=== PATIENT | female | born 1980 | race Caucasian/White ===

== ENCOUNTER 2017-01-29 20:02 | Emergency (ER) | payer BC, MEDICARE ==
[~2017-01-29] VITALS: Ht 162.6 cm; Wt 54.7 kg
[~2017-01-29 20:02] MED LIST: CIPR250T27 PO; ONDA4TAB10 PO
[2017-01-29] MEDS ORDERED: SODIUM CHLORIDE 0.9% 1,000 ML IV ONE (20:17)
[2017-01-29] MEDS ORDERED: SODIUM CHLORIDE 0.9% 1,000ML IVBOLUS ONE (20:30)
[2017-01-29] MEDS ORDERED: SODIUM CHLORIDE FLUSH 10ML SYR IVF ONE (20:30)
[2017-01-29] MEDS ORDERED: PROMETHAZINE 25 MG/ML, 1ML IM ONE (20:30)
[2017-01-29] MEDS ORDERED: ONDANSETRON 2MG/ML, 2ML IVPush ONE (22:00)
[2017-01-29] MEDS ORDERED: DIPHENHYDRAMINE 50 MG/ML, 1ML IVPush ONE (22:00)
[2017-01-29] MEDS ORDERED: KETOROLAC 30 MG/1 ML IVPush ONE (22:00)
[2017-01-29] MEDS ORDERED: DIPHENHYDRAMINE 50 MG/ML, 1ML ONE (22:21)
[2017-01-29] MEDS ORDERED: PROMETHAZINE 25 MG/ML, 1ML ONE (22:21)
[2017-01-29] MEDS ORDERED: KETOROLAC 30 MG/1 ML ONE (22:21)
[2017-01-29] MEDS ORDERED: ONDANSETRON 2MG/ML, 2ML ONE (22:21)
[2017-01-29 23:04] LABS: HEMOGLOBIN 11.1 g/dL (11.7-16.4)
[2017-01-29 23:21] LABS: ASPARTATE AMINO TRANSFERASE 11 U/L (15-37); BLOOD UREA NITROGEN 10 mg/dL (7-18); IS PT STATUS REG ER OR PRE ER? NO
[2017-01-30] MEDS ORDERED: HYDROmorphone 1 MG/ML, 1ML IV ONE
[2017-01-30] MEDS ORDERED: ONDANSETRON 2MG/ML, 2ML IVPush ONE
[2017-01-30] MEDS ORDERED: ONDANSETRON 2MG/ML, 2ML ONE (00:03)
[2017-01-30] MEDS ORDERED: HYDROmorphone 1 MG/ML, 1ML ONE (00:03)
[2017-01-30 00:10] VITALS: BP 125/85
== END 2017-01-29 21:23 ==
LOC: ED 21:17
DX: R07.89 Other chest pain (principal); G89.29 Other chronic pain; R11.2 Nausea with vomiting, unspecified; R10.84 Generalized abdominal pain; Z88.8 Allergy status to other drugs, medicaments and biological substances; Z90.89 Acquired absence of other organs; Z90.710 Acquired absence of both cervix and uterus; Z90.721 Acquired absence of ovaries, unilateral
CPT/HCPCS: 36415; 71010; 80053; 81003; 84484; 84703; 85025; 93005; 96361; 96372; 96374; 96375; 96376; 99285; J1200; J1885; J2405; J2550; J7030; J1170

== ENCOUNTER 2017-05-23 23:05 | Emergency (ER) | payer BC, MEDICARE ==
[~2017-05-23] VITALS: Ht 162.6 cm; Wt 51.4 kg
[2017-05-24] MEDS ORDERED: PROMETHAZINE 25 MG/ML, 1ML ONE (00:15)
[2017-05-24] MEDS ORDERED: KETAMINE 10 MG/ML, 20ML ONE (00:18)
[2017-05-24] MEDS ORDERED: PROMETHAZINE 25 MG/ML, 1ML IM ONE (00:30)
[2017-05-24] MEDS ORDERED: SODIUM CHLORIDE 0.9% 1,000ML IVBOLUS ONE (00:30)
[2017-05-24] MEDS ORDERED: KETAMINE 10 MG/ML, 20ML IV ONE (00:30)
[2017-05-24 00:37] LABS: ASPARTATE AMINO TRANSFERASE 15 U/L (15-37); BLOOD UREA NITROGEN 11 mg/dL (7-18)
[2017-05-24 01:44] VITALS: BP 121/87
== END 2017-05-24 02:05 | disposition home or self-care (01) ==
LOC: ED 05-24 02:03
DX: R11.2 Nausea with vomiting, unspecified (principal); R00.0 Tachycardia, unspecified; Z88.8 Allergy status to other drugs, medicaments and biological substances; Z90.710 Acquired absence of both cervix and uterus
CPT/HCPCS: 36415; 80053; 84439; 84443; 85025; 93005; 96372; 96374; 99285; J2550; J7030

== ENCOUNTER 2017-06-14 19:04 | Emergency (ER) | payer BC, MEDICARE ==
[~2017-06-14] VITALS: Ht 162.6 cm; Wt 55.7 kg
[2017-06-14] MEDS ORDERED: SODIUM CHLORIDE FLUSH 10ML SYR IVF ONE (19:30)
[2017-06-14] MEDS ORDERED: SODIUM CHLORIDE 0.9% 1,000ML IVBOLUS ONE ×2 (19:30→20:00)
[2017-06-14 19:57] LABS: BLOOD UREA NITROGEN 10 mg/dL (7-18)
[2017-06-14] MEDS ORDERED: LORazepam 2 MG/ML, 1ML IVPush ONE (20:00)
[2017-06-14 20:01] LABS: IS PT STATUS REG ER OR PRE ER? YES
[2017-06-14 20:03] LABS: PATH.CAST-FLAG NOT PRESENT; SPERM-FLAG NOT PRESENT; SRC-FLAG NOT PRESENT; XTAL-FLAG NOT PRESENT; YLC-FLAG NOT PRESENT
[2017-06-14] MEDS ORDERED: PROMETHAZINE 25 MG/ML, 1ML IM ONE (20:30)
[2017-06-14] MEDS ORDERED: MORPHINE SULFATE 4 MG/ML, 1ML ONE ×2 (20:34→21:15)
[2017-06-14] MEDS ORDERED: LORazepam 2 MG/ML, 1ML ONE (20:35)
[2017-06-14] MEDS: MORPHINE SULFATE 4 MG/ML, 1ML IVPush PRN ×2 (20:41→21:17)
[2017-06-14] MEDS ORDERED: POTASSIUM CHLORIDE 20 MEQ TAB.ER.PRT PO ONE (21:00)
[2017-06-14] MEDS ORDERED: OMNIPAQUE 350 MG/ML, 100ML BOTTLE ONE (21:00)
[2017-06-14] MEDS ORDERED: POTASSIUM CHLORIDE 20 MEQ TAB.ER.PRT ONE (21:15)
[2017-06-14] MEDS ORDERED: ONDA2VIA3 IV (21:44)
[2017-06-14] MEDS ORDERED: LORA2TAB99 PO (21:44)
[2017-06-14] MEDS ORDERED: DIPH12.532 IV (21:44)
[2017-06-14] MEDS ORDERED: ALPR2TAB2 PO (21:44)
[2017-06-14] MEDS ORDERED: ESTR2TAB PO (21:44)
[2017-06-14 21:45] VITALS: BP 116/81
== END 2017-06-14 22:26 | disposition home or self-care (01) ==
LOC: ED 21:55
DX: R07.2 Precordial pain (principal); R00.0 Tachycardia, unspecified; E87.6 Hypokalemia; Z88.8 Allergy status to other drugs, medicaments and biological substances
CPT/HCPCS: 36415; 71010; 71275; 80048; 80162; 81001; 82040; 83735; 83880; 84436; 84443; 84484; 84703; 85025; 85379; 87086; 93005; 96361; 96374; 96375; 96376; 99285; J2060; J7030; Q9967

== ENCOUNTER 2017-08-07 18:06 | Inpatient (IN) | payer BC, MEDICARE ==
[~2017-08-07] VITALS: Ht 162.6 cm; Wt 58.6 kg
[~2017-08-07 18:06] MED LIST changes: +ALPR2TAB2 PO; +DIPH12.532 IV; +ESTR2TAB PO; +LORA2TAB99 PO; +ONDA2VIA3 IV
[2017-08-07] MEDS ORDERED: SODIUM CHLORIDE 0.9% 1,000ML IVBOLUS ONE (18:30)
[2017-08-07] MEDS ORDERED: FAMOTIDINE 20 MG/2 ML IVP ONE (18:30)
[2017-08-07] MEDS ORDERED: ONDANSETRON 2MG/ML, 2ML IVPush ONE ×2 (18:30→19:00)
[2017-08-07 18:48] LABS: HEMATOCRIT 37.3 % (34.6-47.8); HEMOGLOBIN 12.6 g/dL (11.7-16.4); WHITE BLOOD COUNT 4.6 x10^3/uL (3.4-10)
[2017-08-07] MEDS ORDERED: FAMOTIDINE 20 MG/2 ML ONE (18:56)
[2017-08-07] MEDS ORDERED: MORPHINE SULFATE 4 MG/ML, 1ML ONE ×2 (18:56→23:02)
[2017-08-07 19:00] LABS: ASPARTATE AMINO TRANSFERASE 16 U/L (15-37); BLOOD UREA NITROGEN 7 mg/dL (7-18)
[2017-08-07] MEDS ORDERED: ONDANSETRON 2MG/ML, 2ML ONE (19:00)
[2017-08-07] MEDS: MORPHINE SULFATE 4 MG/ML, 1ML IVPush PRN ×2 (19:22→23:04)
[2017-08-07 20:21] LABS: PATH.CAST-FLAG NOT PRESENT; SPERM-FLAG NOT PRESENT; SRC-FLAG NOT PRESENT; XTAL-FLAG NOT PRESENT; YLC-FLAG NOT PRESENT
[2017-08-07] MEDS ORDERED: PROMETHAZINE 25 MG/ML, 1ML ONE (20:45)
[2017-08-07] MEDS ORDERED: PROMETHAZINE 25 MG/ML, 1ML IVPush ONE (21:00)
[2017-08-07] MEDS ORDERED: OMNIPAQUE 350 MG/ML, 100ML BOTTLE ONE (21:24)
[2017-08-07] MEDS ORDERED: MAALOX/HYOSCYAMINE/LIDOCAINE 45 ML BTL ONE (21:57)
[2017-08-07] MEDS ORDERED: MAALOX/HYOSCYAMINE/LIDOCAINE 45 ML BTL PO ONE (22:00)
[2017-08-07] MEDS ORDERED: ACETAMINOPHEN 325 MG TABLET PO PRN (23:30)
[2017-08-08] MEDS: DIPHENHYDRAMINE 50 MG/ML, 1ML IV SCH ×3 (00:46→22:29)
[2017-08-08] MEDS: HEPARIN 5,000 UNITS/ML, 1ML SQ SCH ×4 (00:46→22:28)
[2017-08-08] MEDS: SODIUM CHLORIDE 0.9% 1,000 ML IV SCH ×2 (00:46→08:16)
[2017-08-08 02:00] VITALS: BP 118/80
[2017-08-08] MEDS ORDERED: ACETAMINOPHEN 650 MG SUPP PR PRN (02:30)
[2017-08-08] MEDS ORDERED: LORazepam 2 MG/ML, 1ML IVPush PRN (02:30)
[2017-08-08] MEDS: MORPHINE SULFATE 4 MG/ML, 1ML IVPush PRN ×5 (03:00→18:32)
[2017-08-08] MEDS: ONDANSETRON 2MG/ML, 2ML IVPush PRN ×3 (04:31→22:54)
[2017-08-08 05:43] VITALS: BP 118/80
[2017-08-08] MEDS ORDERED: METO5AMP PO (05:43)
[2017-08-08 06:01] LABS: HEMATOCRIT 33.2 % (34.6-47.8); HEMOGLOBIN 11.2 g/dL (11.7-16.4)
[2017-08-08 06:52] LABS: ASPARTATE AMINO TRANSFERASE 26 U/L (15-37); BLOOD UREA NITROGEN 6 mg/dL (7-18)
[2017-08-08] MEDS: PROMETHAZINE 25 MG/ML, 1ML IM PRN ×4 (06:55→17:50)
[2017-08-08 07:24] VITALS: BP 95/61
[2017-08-08] MEDS: LORazepam 1MG TABLET PO PRN ×2 (08:16→17:50)
[2017-08-08] MEDS: ESTRADIOL 2 MG TABLET PO SCH (08:19)
[2017-08-08 12:45] VITALS: BP 120/75
[2017-08-08] MEDS: LORazepam 2 MG/ML, 1ML IVPush PRN ×2 (14:31→18:32)
[2017-08-08] MEDS: FLUDROCORTISONE 0.1 MG TABLET PO SCH (16:00)
[2017-08-08] MEDS: D5%-0.9% NACL 1,000 ML IV SCH (17:09)
[2017-08-08] MEDS: KETOROLAC 30 MG/1 ML IVPush SCH ×2 (17:09→22:28)
[2017-08-08] MEDS: FAMOTIDINE 20 MG/2 ML IVPush SCH ×2 (17:50→22:28)
[2017-08-08] MEDS: PANTOPRAZOLE 40 MG IV IVPush SCH (17:51)
[2017-08-08 20:00] VITALS: BP 109/72
[2017-08-09] MEDS: PROMETHAZINE 25 MG/ML, 1ML IM PRN ×3 (01:49→22:38)
[2017-08-09] MEDS: MORPHINE SULFATE 4 MG/ML, 1ML IVPush PRN ×3 (01:49→13:04)
[2017-08-09 01:57] VITALS: BP 99/66
[2017-08-09] MEDS: LORazepam 2 MG/ML, 1ML IVPush PRN ×3 (04:04→16:40)
[2017-08-09] MEDS: KETOROLAC 30 MG/1 ML IVPush SCH ×4 (05:59→20:34)
[2017-08-09] MEDS: D5%-0.9% NACL 1,000 ML IV SCH ×2 (05:59→22:41)
[2017-08-09] MEDS: HEPARIN 5,000 UNITS/ML, 1ML SQ SCH ×3 (06:00→20:34)
[2017-08-09 06:30] LABS: BLOOD UREA NITROGEN 8 mg/dL (7-18)
[2017-08-09 07:39] VITALS: BP 106/70
[2017-08-09] MEDS: PANTOPRAZOLE MC SCH ×2 (08:00→16:00)
[2017-08-09] MEDS: FAMOTIDINE MC SCH ×2 (08:00→16:00)
[2017-08-09] MEDS: ONDANSETRON 2MG/ML, 2ML IVPush PRN ×3 (08:43→20:34)
[2017-08-09] MEDS: ESTRADIOL 2 MG TABLET PO SCH (09:40)
[2017-08-09] MEDS: FAMOTIDINE 20 MG/2 ML IVPush SCH ×2 (09:40→20:34)
[2017-08-09] MEDS: DIPHENHYDRAMINE 50 MG/ML, 1ML IV SCH ×2 (09:40→20:33)
[2017-08-09] MEDS: PANTOPRAZOLE 40 MG IV IVPush SCH (09:40)
[2017-08-09] MEDS: FLUDROCORTISONE 0.1 MG TABLET PO SCH (09:40)
[2017-08-09 13:41] VITALS: BP 128/83
[2017-08-09 19:53] VITALS: BP 129/87
[2017-08-09] MEDS: HYDROmorphone 1 MG/ML, 1ML IV PRN (20:34)
[2017-08-09 20:53] LABS: DAU SCREEN DISCLAIMER
[2017-08-09] MEDS ORDERED: LORazepam 1MG TABLET PO ONE (21:00)
[2017-08-10] MEDS: HYDROmorphone 1 MG/ML, 1ML IV PRN ×5 (00:30→18:15)
[2017-08-10 00:34] VITALS: BP 120/85
[2017-08-10] MEDS ORDERED: DIPHENHYDRAMINE 50 MG/ML, 1ML IVPush PRN (04:30)
[2017-08-10] MEDS: DIPHENHYDRAMINE 50 MG/ML, 1ML IV SCH ×2 (04:52→21:32)
[2017-08-10] MEDS: KETOROLAC 30 MG/1 ML IVPush SCH ×4 (04:53→21:32)
[2017-08-10] MEDS: HEPARIN 5,000 UNITS/ML, 1ML SQ SCH ×3 (04:53→21:33)
[2017-08-10] MEDS: PROMETHAZINE 25 MG/ML, 1ML IM PRN ×4 (05:33→20:38)
[2017-08-10 05:56] LABS: HEMATOCRIT 31.4 % (34.6-47.8); HEMOGLOBIN 10.7 g/dL (11.7-16.4); WHITE BLOOD COUNT 3.9 x10^3/uL (3.4-10)
[2017-08-10 06:02] LABS: BLOOD UREA NITROGEN 6 mg/dL (7-18)
[2017-08-10 08:00] VITALS: BP 109/76
[2017-08-10] MEDS: D5%-0.9% NACL 1,000 ML IV SCH ×3 (08:00→21:44)
[2017-08-10] MEDS: PANTOPRAZOLE MC SCH ×3 (08:00→16:00)
[2017-08-10] MEDS: FAMOTIDINE MC SCH ×3 (08:00→16:00)
[2017-08-10] MEDS: FAMOTIDINE 20 MG/2 ML IVPush SCH ×2 (09:34→16:31)
[2017-08-10] MEDS: FLUDROCORTISONE 0.1 MG TABLET PO SCH (09:36)
[2017-08-10] MEDS: PANTOPRAZOLE 40 MG IV IVPush SCH (09:36)
[2017-08-10] MEDS: ESTRADIOL 2 MG TABLET PO SCH (09:36)
[2017-08-10] MEDS ORDERED: POTASSIUM CHLORIDE 40 MEQ in SODIUM CHLORIDE 0.9% 500 ML IV ONE (10:00)
[2017-08-10 14:35] VITALS: BP 116/80
[2017-08-10] MEDS: ONDANSETRON 2MG/ML, 2ML IVPush PRN (18:16)
[2017-08-10 19:28] VITALS: BP 113/79
[2017-08-10] MEDS ORDERED: HYDROmorphone 1 MG/ML, 1ML IV ONE (20:30)
[2017-08-11 00:15] VITALS: BP 108/71
[2017-08-11] MEDS: HYDROmorphone 1 MG/ML, 1ML IV PRN ×4 (00:19→20:33)
[2017-08-11] MEDS: PROMETHAZINE 25 MG/ML, 1ML IM PRN ×4 (00:20→16:01)
[2017-08-11] MEDS: LORazepam 2 MG/ML, 1ML IVPush PRN ×2 (00:44→22:00)
[2017-08-11] MEDS: KETOROLAC 30 MG/1 ML IVPush SCH ×4 (04:27→22:01)
[2017-08-11] MEDS: ONDANSETRON 2MG/ML, 2ML IVPush PRN ×2 (04:28→20:33)
[2017-08-11] MEDS: HEPARIN 5,000 UNITS/ML, 1ML SQ SCH ×3 (05:00→20:34)
[2017-08-11] MEDS: D5%-0.9% NACL 1,000 ML IV SCH ×2 (05:52→16:00)
[2017-08-11 06:00] LABS: HEMATOCRIT 31.9 % (34.6-47.8); HEMOGLOBIN 10.6 g/dL (11.7-16.4); WHITE BLOOD COUNT 5.5 x10^3/uL (3.4-10)
[2017-08-11 06:03] LABS: BLOOD UREA NITROGEN 4 mg/dL (7-18)
[2017-08-11 08:00] VITALS: BP 100/64
[2017-08-11] MEDS: FAMOTIDINE MC SCH ×3 (08:00→16:00)
[2017-08-11] MEDS: PANTOPRAZOLE MC SCH ×3 (08:00→16:00)
[2017-08-11] MEDS: DIPHENHYDRAMINE 50 MG/ML, 1ML IV SCH ×2 (08:36→20:34)
[2017-08-11] MEDS: ESTRADIOL 2 MG TABLET PO SCH (09:00)
[2017-08-11] MEDS: FLUDROCORTISONE 0.1 MG TABLET PO SCH (09:00)
[2017-08-11] MEDS: FAMOTIDINE 20 MG/2 ML IVPush SCH (09:00)
[2017-08-11] MEDS ORDERED: PROPOFOL 10 MG/ML, 20ML ONE (09:21)
[2017-08-11] MEDS ORDERED: MIDAZOLAM 1 MG/ML, 2ML ONE (09:24)
[2017-08-11] MEDS ORDERED: DIAZEPAM 5 MG/ML, 2ML IVPush PRN (10:00)
[2017-08-11] MEDS ORDERED: ONDANSETRON 2MG/ML, 2ML IVPush PRN (10:00)
[2017-08-11] MEDS ORDERED: KETOROLAC 30 MG/1 ML IV PRN (10:00)
[2017-08-11] MEDS ORDERED: EPHEDRINE 50 MG/ML, 1ML IVPush PRN (10:00)
[2017-08-11] MEDS ORDERED: MEPERIDINE/PF 25MG/0.5ML IVPush PRN (10:00)
[2017-08-11] MEDS ORDERED: ALBUTEROL SULFATE 2.5 MG/3 ML NPPB PRN (10:00)
[2017-08-11] MEDS ORDERED: ACETAMINOPHEN 325 MG TABLET PO PRN (10:00)
[2017-08-11] MEDS ORDERED: hydrALAzine 20 MG/ML, 1ML IV PRN (10:00)
[2017-08-11] MEDS ORDERED: MIDAZOLAM 1 MG/ML, 2ML IV PRN (10:00)
[2017-08-11] MEDS ORDERED: LABETALOL 5MG/ML, 20ML IV PRN (10:00)
[2017-08-11] MEDS ORDERED: FENTANYL PF 100 MCG/2ML IV PRN (10:00)
[2017-08-11] MEDS ORDERED: METOPROLOL 1 MG/ML, 5ML IV PRN (10:00)
[2017-08-11] MEDS ORDERED: OXYcodone 5 MG/5 ML ORAL.SOL UDC PO PRN (10:00)
[2017-08-11] MEDS ORDERED: HYDROcodone/APAP 7.5-325MG/15ML UDC PO PRN (10:00)
[2017-08-11] MEDS ORDERED: PROMETHAZINE 25 MG/ML, 1ML IV PRN (10:00)
[2017-08-11] MEDS ORDERED: KETOROLAC 30 MG/1 ML ONE (10:10)
[2017-08-11] MEDS: PANTOPRAZOLE 40 MG IV IVPush SCH (10:53)
[2017-08-11 14:00] VITALS: BP 112/75
[2017-08-11] MEDS: HYDROcodone/APAP 10/325 MG TABLET PO PRN (15:59)
[2017-08-11 18:37] VITALS: BP 109/77
[2017-08-12] MEDS: D5%-0.9% NACL 1,000 ML IV SCH (00:23)
[2017-08-12] MEDS: PROMETHAZINE 25 MG/ML, 1ML IM PRN ×2 (01:27→06:11)
[2017-08-12] MEDS: HYDROmorphone 1 MG/ML, 1ML IV PRN ×2 (01:27→06:11)
[2017-08-12 01:37] VITALS: BP_SYST 137; BP_SYST 98; BP_DIAS 66; BP_DIAS 77
[2017-08-12] MEDS: KETOROLAC 30 MG/1 ML IVPush SCH ×2 (03:30→09:30)
[2017-08-12] MEDS: ONDANSETRON 2MG/ML, 2ML IVPush PRN (03:30)
[2017-08-12] MEDS: LORazepam 2 MG/ML, 1ML IVPush PRN (04:20)
[2017-08-12] MEDS: HEPARIN 5,000 UNITS/ML, 1ML SQ SCH (06:10)
[2017-08-12 06:11] VITALS: BP 112/62
[2017-08-12 07:17] VITALS: BP 98/56
[2017-08-12] MEDS: PANTOPRAZOLE 40 MG IV IVPush SCH (08:00)
[2017-08-12] MEDS: FAMOTIDINE MC SCH ×2 (08:00)
[2017-08-12] MEDS: ESTRADIOL 2 MG TABLET PO SCH (08:00)
[2017-08-12] MEDS: FLUDROCORTISONE 0.1 MG TABLET PO SCH (08:00)
[2017-08-12] MEDS: PANTOPRAZOLE MC SCH ×2 (08:00)
[2017-08-12] MEDS: DIPHENHYDRAMINE 50 MG/ML, 1ML IV SCH (08:00)
[2017-08-12] MEDS: HYDROcodone/APAP 10/325 MG TABLET PO PRN (09:35)
[2017-08-12] MEDS ORDERED: FLUD0.1T PO (09:49)
[2017-08-12] MEDS ORDERED: OMEP-110 PO (09:49)
== END 2017-08-12 11:57 | disposition home or self-care (01) | DRG 392 ==
LOC: ED 21:51 → EDIP 22:21 → 4EST 08-08 00:18
PROVIDERS: ADMIT Hospitalist; ATTEND Hospitalist
PROC: 0DB68ZX Excision of Stomach, Via Natural or Artificial Opening Endoscopic, Diagnostic (ICD-10-PCS; 2017-08-11)
PROC: 0DB98ZX Excision of Duodenum, Via Natural or Artificial Opening Endoscopic, Diagnostic (ICD-10-PCS; principal; 2017-08-11 09:00)
DX: K29.60 Other gastritis without bleeding (principal); F31.81 Bipolar II disorder; D64.9 Anemia, unspecified; I49.8 Other specified cardiac arrhythmias; F43.10 Post-traumatic stress disorder, unspecified; Z81.8 Family history of other mental and behavioral disorders; F90.9 Attention-deficit hyperactivity disorder, unspecified type; Z90.710 Acquired absence of both cervix and uterus; K21.9 Gastro-esophageal reflux disease without esophagitis; Z88.1 Allergy status to other antibiotic agents; Z88.8 Allergy status to other drugs, medicaments and biological substances
CPT/HCPCS: 36415; 70450; 74177; 76830; 80048; 80053; 80162; 80307; 81001; 82533; 83690; 83735; 83930; 83935; 84300; 84439; 84443; 85025; 85651; 86141; 86677; 87046; 87086; 87328; 87329; 87899; 88305; 93005; 96361; 96374; 96375; 96376; J1170; J1644; J1885; J2250; J2405; J2550; J2704; J3480; J7042; Q9967; C9113; G0479; J1200; J2060; J7030; J7040; S0028

== ENCOUNTER 2017-08-22 20:36 | Inpatient (IN) | payer BC, MEDICARE ==
[~2017-08-22] VITALS: Ht 162.6 cm; Wt 59.1 kg
[~2017-08-22 20:36] MED LIST changes: +FLUD0.1T PO; +METO5AMP PO; +OMEP-110 PO
[2017-08-22] MEDS ORDERED: ONDANSETRON 2MG/ML, 2ML ONE (20:56)
[2017-08-22] MEDS ORDERED: ONDANSETRON 2MG/ML, 2ML IVPush ONE (21:00)
[2017-08-22] MEDS ORDERED: SODIUM CHLORIDE FLUSH 10ML SYR IVF ONE (21:00)
[2017-08-22 21:09] LABS: HEMATOCRIT 35.9 % (34.6-47.8); HEMOGLOBIN 12.3 g/dL (11.7-16.4); WHITE BLOOD COUNT 5.6 x10^3/uL (3.4-10)
[2017-08-22 21:22] LABS: ASPARTATE AMINO TRANSFERASE 13 U/L (15-37); BLOOD UREA NITROGEN 10 mg/dL (7-18)
[2017-08-22] MEDS ORDERED: DIPHENHYDRAMINE 50 MG/ML, 1ML ONE (21:50)
[2017-08-22] MEDS ORDERED: LORazepam 2 MG/ML, 1ML IVPush ONE (22:00)
[2017-08-22] MEDS ORDERED: DIPHENHYDRAMINE 50 MG/ML, 1ML IVPush ONE (22:00)
[2017-08-22] MEDS ORDERED: MAGNESIUM SULFATE PMX 2GM/50ML 50 ML IV ONE (22:00)
[2017-08-22] MEDS ORDERED: SODIUM CHLORIDE 0.9% 1,000ML IVBOLUS ONE (22:00)
[2017-08-22] MEDS ORDERED: LORazepam 2 MG/ML, 1ML ONE (22:11)
[2017-08-22] MEDS: NS + 20MEQ KCL 1,000 ML IV SCH (23:37)
[2017-08-23] MEDS ORDERED: SCOPOLAMINE PATCH, 1MG PATCH.TD72 TD SCH
[2017-08-23] MEDS ORDERED: BISACODYL 10 MG SUPP PR PRN
[2017-08-23] MEDS ORDERED: NS + 20MEQ KCL 1,000 ML IV ONE (00:26)
[2017-08-23] MEDS ORDERED: MORPHINE SULFATE 4 MG/ML, 1ML ONE ×2 (00:29→08:11)
[2017-08-23] MEDS: MORPHINE SULFATE 4 MG/ML, 1ML IVPush PRN ×3 (00:49→12:15)
[2017-08-23] MEDS ORDERED: HYDROmorphone 1 MG/ML, 1ML ONE ×2 (02:20→09:15)
[2017-08-23] MEDS ORDERED: HYDROmorphone 1 MG/ML, 1ML IV ONE (02:30)
[2017-08-23] MEDS: PROCHLORPERAZINE 25 MG SUPP PR PRN ×2 (02:31→14:38)
[2017-08-23] MEDS ORDERED: IBUPROFEN 100 MG/5 ML UDC ONE (03:16)
[2017-08-23] MEDS ORDERED: LORazepam 2 MG/ML, 1ML ONE (03:57)
[2017-08-23] MEDS ORDERED: LORazepam 2 MG/ML, 1ML IVPush ONE (05:00)
[2017-08-23] MEDS ORDERED: DIPHENHYDRAMINE 50 MG/ML, 1ML ONE (05:17)
[2017-08-23] MEDS ORDERED: DIPHENHYDRAMINE 50 MG/ML, 1ML IVPush ONE (05:30)
[2017-08-23 05:34] LABS: HEMATOCRIT 34.3 % (34.6-47.8); HEMOGLOBIN 11.7 g/dL (11.7-16.4)
[2017-08-23 05:55] LABS: ASPARTATE AMINO TRANSFERASE 14 U/L (15-37); BLOOD UREA NITROGEN 9 mg/dL (7-18)
[2017-08-23] MEDS ORDERED: DIPHENHYDRAMINE 25 MG CAPSULE ONE (09:15)
[2017-08-23] MEDS: HYDROmorphone 1 MG/ML, 1ML IV PRN ×3 (09:25→19:25)
[2017-08-23] MEDS ORDERED: DIPHENHYDRAMINE 25 MG CAPSULE PO ONE (09:30)
[2017-08-23 09:35] LABS: DAU SCREEN DISCLAIMER
[2017-08-23] MEDS: FLUDROCORTISONE 0.1 MG TABLET PO SCH (09:49)
[2017-08-23] MEDS: METOPROLOL SUCCINATE 25 MG TAB.ER.24H PO SCH (09:49)
[2017-08-23] MEDS: OMEPRAZOLE 20 MG CAPSULE.DR PO SCH ×3 (09:49→22:24)
[2017-08-23] MEDS: ESTRADIOL 2 MG TABLET PO SCH (09:49)
[2017-08-23 11:21] VITALS: BP 104/69
[2017-08-23 12:00] VITALS: BP 104/69
[2017-08-23] MEDS: NS + 20MEQ KCL 1,000 ML IV SCH ×2 (12:14→22:24)
[2017-08-23 15:31] VITALS: BP 112/63
[2017-08-23] MEDS ORDERED: LORazepam 1MG TABLET ONE (20:56)
[2017-08-23 21:15] VITALS: BP 100/63
[2017-08-24 01:05] VITALS: BP 106/65
[2017-08-24] MEDS: HYDROmorphone 1 MG/ML, 1ML IV PRN ×2 (01:14→06:36)
[2017-08-24 05:35] LABS: HEMATOCRIT 30.4 % (34.6-47.8); HEMOGLOBIN 10.1 g/dL (11.7-16.4); WHITE BLOOD COUNT 9.8 x10^3/uL (3.4-10)
[2017-08-24 05:55] LABS: BLOOD UREA NITROGEN 6 mg/dL (7-18)
[2017-08-24] MEDS: METOPROLOL SUCCINATE 25 MG TAB.ER.24H PO SCH (06:22)
[2017-08-24] MEDS: NS + 20MEQ KCL 1,000 ML IV SCH (08:00)
[2017-08-24 08:02] VITALS: BP 92/64
[2017-08-24] MEDS ORDERED: LORazepam 1MG TABLET ONE (08:19)
[2017-08-24] MEDS: ESTRADIOL 2 MG TABLET PO SCH (08:26)
[2017-08-24] MEDS: FLUDROCORTISONE 0.1 MG TABLET PO SCH (08:27)
[2017-08-24] MEDS: OMEPRAZOLE 20 MG CAPSULE.DR PO SCH (08:27)
[2017-08-24] MEDS ORDERED: METO25TA91 PO (09:53)
[2017-08-24] MEDS ORDERED: PROC25SU25 PR (09:53)
== END 2017-08-24 11:03 | disposition home or self-care (01) | DRG 310 ==
LOC: ED 21:59 → EDIP 22:31 → 5SO 08-23 10:30 → DCLOUNGE 08-24 10:28
PROVIDERS: ADMIT Hospitalist; ATTEND Hospitalist
DX: I47.2 Ventricular tachycardia (principal); I45.81 Long QT syndrome; F31.9 Bipolar disorder, unspecified; F43.10 Post-traumatic stress disorder, unspecified; Z88.8 Allergy status to other drugs, medicaments and biological substances; I49.8 Other specified cardiac arrhythmias; K29.50 Unspecified chronic gastritis without bleeding; N80.9 Endometriosis, unspecified; Z87.891 Personal history of nicotine dependence
CPT/HCPCS: 36415; 71010; 80048; 80053; 80307; 83690; 83735; 84439; 84443; 84703; 85025; 93005; 93306; J1170; J3480; G0479; J1200; J2060; J3475; J7030; Q0163

== ENCOUNTER 2017-12-07 09:28 | Emergency (ER) | payer BC, MEDICARE ==
[~2017-12-07] VITALS: Ht 162.6 cm; Wt 54.7 kg
[~2017-12-07 09:28] MED LIST changes: +METO25TA91 PO; +PROC25SU25 PR
[2017-12-07] MEDS ORDERED: DIPHENHYDRAMINE 50 MG/ML, 1ML ONE (10:27)
[2017-12-07] MEDS ORDERED: METOCLOPRAMIDE 5 MG/ML, 2ML ONE (10:27)
[2017-12-07] MEDS ORDERED: SODIUM CHLORIDE 0.9% 1,000ML IVBOLUS ONE (10:30)
[2017-12-07] MEDS ORDERED: DIPHENHYDRAMINE 50 MG/ML, 1ML IVPush ONE (10:30)
[2017-12-07] MEDS ORDERED: METOCLOPRAMIDE 5 MG/ML, 2ML IVPush ONE (10:30)
[2017-12-07 10:41] LABS: BASOPHILS # (AUTO) 0.01 x10^3/uL (0-0.1); BASOPHILS % (AUTO) 0 % (0-1); EOSINOPHILS # (AUTO) 0.05 x10^3/uL (0-0.4); EOSINOPHILS % (AUTO) 1 % (1-7); LYMPHOCYTES # (AUTO) 1.58 x10^3/uL (1-3.4); LYMPHOCYTES % (AUTO) 33 % (22-44); MD NO; MEAN CORPUSCULAR HEMOGLOBIN 25.7 pg (27.0-34.8); MEAN CORPUSCULAR HGB CONC 32.5 g/dL (32.4-35.8); MEAN CORPUSCULAR VOLUME 79.1 fL (80-100); MEAN PLATELET VOLUME 7.7 fL (7.4-10.4); MONOCYTES % (AUTO) 4 % (2-9); NEUTROPHILS # (AUTO) 2.99 x10^3/uL (1.8-6.8); NEUTROPHILS % (AUTO) 62 % (42-75); PLATELET COUNT 225 x10^3/uL (130-400); RED BLOOD COUNT 4.95 x10^6/uL (3.82-5.3); RED CELL DISTRIBUTION WIDTH 16.9 % (9.6-15.2)
[2017-12-07 10:51] LABS: ALANINE AMINOTRANSFERASE 15 U/L (12-78); ALBUMIN 4.3 g/dL (3.4-5.0); ANION GAP 5 mmol/L (5-15); CALCIUM 8.6 mg/dL (8.5-10.1); CHLORIDE 108 mmol/L (98-107); CREATININE 0.75 mg/dL (0.55-1.02)
[2017-12-07 11:04] LABS: ALKALINE PHOSPHATASE 63 U/L (45-117); BILIRUBIN,TOTAL 0.3 mg/dL (0.2-1.0); TOTAL PROTEIN 7.4 g/dL (6.4-8.2)
[2017-12-07] MEDS ORDERED: KETOROLAC 30 MG/1 ML ONE (11:18)
[2017-12-07] MEDS ORDERED: KETOROLAC 30 MG/1 ML IVPush ONE (11:30)
[2017-12-07 11:32] LABS: MICROSCOPIC NOT IND
[2017-12-07 11:49] VITALS: BP 106/73
[2017-12-07 11:50] LABS: RAPID INFLUENZA A Negative (Negative); RAPID INFLUENZA B Negative (Negative)
== END 2017-12-07 12:37 | disposition home or self-care (01) ==
LOC: ED 11:19
DX: R11.2 Nausea with vomiting, unspecified (principal); R10.84 Generalized abdominal pain; G89.29 Other chronic pain; I51.9 Heart disease, unspecified
CPT/HCPCS: 36415; 80053; 80162; 81003; 83690; 85025; 87400; 93005; 96361; 96374; 96375; 99285; J1200; J1885; J2765; J7030

== ENCOUNTER 2018-05-18 13:02 | Emergency (ER) | payer BC, MEDICARE ==
[~2018-05-18] VITALS: Ht 162.6 cm; Wt 57.1 kg
[2018-05-18] MEDS ORDERED: PROMETHAZINE 25 MG/ML, 1ML ONE (13:55)
[2018-05-18] MEDS ORDERED: DIPHENHYDRAMINE 50 MG/ML, 1ML ONE (13:55)
[2018-05-18] MEDS ORDERED: MORPHINE SULFATE 4 MG/ML, 1ML ONE ×2 (13:56→14:40)
[2018-05-18 13:57] LABS: BASOPHILS # (AUTO) 0.03 x10^3/uL (0-0.1); BASOPHILS % (AUTO) 0 % (0-1); EOSINOPHILS # (AUTO) 0.04 x10^3/uL (0-0.4); EOSINOPHILS % (AUTO) 1 % (1-7); LYMPHOCYTES # (AUTO) 1.09 x10^3/uL (1-3.4); LYMPHOCYTES % (AUTO) 16 % (22-44); MD NO; MEAN CORPUSCULAR HEMOGLOBIN 27.5 pg (27.0-34.8); MEAN CORPUSCULAR HGB CONC 33.3 g/dL (32.4-35.8); MEAN CORPUSCULAR VOLUME 82.6 fL (80-100); MEAN PLATELET VOLUME 7.8 fL (7.4-10.4); MONOCYTES # (AUTO) 0.28 x10^3/uL (0.2-0.8); MONOCYTES % (AUTO) 4 % (2-9); NEUTROPHILS # (AUTO) 5.58 x10^3/uL (1.8-6.8); NEUTROPHILS % (AUTO) 80 % (42-75); PLATELET COUNT 277 x10^3/uL (130-400); RED BLOOD COUNT 4.43 x10^6/uL (3.82-5.3); RED CELL DISTRIBUTION WIDTH 14.4 % (9.6-15.2)
[2018-05-18] MEDS ORDERED: SODIUM CHLORIDE FLUSH 10ML SYR IVF ONE (14:00)
[2018-05-18] MEDS ORDERED: SODIUM CHLORIDE 0.9% 1,000ML IVBOLUS ONE (14:00)
[2018-05-18] MEDS ORDERED: DIPHENHYDRAMINE 50 MG/ML, 1ML IVPush ONE (14:00)
[2018-05-18] MEDS ORDERED: PROMETHAZINE 25 MG/ML, 1ML IM ONE (14:00)
[2018-05-18 14:08] LABS: ALANINE AMINOTRANSFERASE 21 U/L (12-78); ALBUMIN 4.5 g/dL (3.4-5.0); ANION GAP 5 mmol/L (5-15); CALCIUM 9.2 mg/dL (8.5-10.1); CHLORIDE 108 mmol/L (98-107); CREATININE 0.97 mg/dL (0.55-1.02)
[2018-05-18 14:10] LABS: ALKALINE PHOSPHATASE 66 U/L (45-117); BILIRUBIN,TOTAL 0.3 mg/dL (0.2-1.0); TOTAL PROTEIN 8.1 g/dL (6.4-8.2)
[2018-05-18] MEDS ORDERED: PROM25SU34 RC (14:17)
[2018-05-18] MEDS ORDERED: NORMAL SALINE (14:18)
[2018-05-18] MEDS ORDERED: BENADRYL (14:20)
[2018-05-18] MEDS ORDERED: HYDR-883 PO (14:21)
[2018-05-18] MEDS: MORPHINE SULFATE 4 MG/ML, 1ML IVPush PRN ×2 (14:32→14:43)
[2018-05-18 14:34] LABS: MICROSCOPIC NOT IND
[2018-05-18 14:50] LABS: CULTURE INDICATED? NO
[2018-05-18 15:18] VITALS: BP 129/86
[2018-05-18] MEDS ORDERED: LORazepam 2 MG/ML, 1ML IVPush ONE (15:30)
[2018-05-18] MEDS ORDERED: LORazepam 2 MG/ML, 1ML ONE (15:32)
== END 2018-05-18 16:08 | disposition home or self-care (01) ==
LOC: ED 14:39
DX: R00.0 Tachycardia, unspecified (principal); R00.2 Palpitations; R53.83 Other fatigue
CPT/HCPCS: 36415; 80053; 81003; 83690; 85025; 93005; 96372; 96374; 96375; 99285; J1200; J2550; J7030

== ENCOUNTER 2018-07-15 17:58 | Emergency (ER) | payer BC, MEDICARE ==
[~2018-07-15] VITALS: Ht 162.6 cm; Wt 57.3 kg
[~2018-07-15 17:58] MED LIST changes: +BENADRYL; +HYDR-883 PO; +NORMAL SALINE; +PROM25SU34 RC
[2018-07-15] MEDS ORDERED: METOPROLOL TARTRATE 25 MG TABLET ONE (18:51)
[2018-07-15] MEDS ORDERED: PROMETHAZINE 25 MG SUPP PR ONE (18:51)
[2018-07-15] MEDS ORDERED: HYDROcodone/APAP 5/325 TABLET ONE (18:51)
[2018-07-15 18:56] LABS: BASOPHILS # (AUTO) 0.03 x10^3/uL (0-0.1); BASOPHILS % (AUTO) 0 % (0-1); EOSINOPHILS # (AUTO) 0.02 x10^3/uL (0-0.4); EOSINOPHILS % (AUTO) 0 % (1-7); LYMPHOCYTES # (AUTO) 1.85 x10^3/uL (1-3.4); LYMPHOCYTES % (AUTO) 32 % (22-44); MD NO; MEAN CORPUSCULAR HEMOGLOBIN 26.9 pg (27.0-34.8); MEAN CORPUSCULAR HGB CONC 33.4 g/dL (32.4-35.8); MEAN CORPUSCULAR VOLUME 80.3 fL (80-100); MEAN PLATELET VOLUME 7.8 fL (7.4-10.4); MONOCYTES # (AUTO) 0.23 x10^3/uL (0.2-0.8); MONOCYTES % (AUTO) 4 % (2-9); NEUTROPHILS # (AUTO) 3.67 x10^3/uL (1.8-6.8); NEUTROPHILS % (AUTO) 63 % (42-75); PLATELET COUNT 235 x10^3/uL (130-400); RED CELL DISTRIBUTION WIDTH 16.2 % (9.6-15.2)
[2018-07-15] MEDS ORDERED: METOPROLOL TARTRATE 50 MG TABLET PO ONE (19:00)
[2018-07-15] MEDS ORDERED: SODIUM CHLORIDE 0.9% 1,000ML IVBOLUS ONE ×2 (19:00→20:00)
[2018-07-15] MEDS ORDERED: HYDROcodone/APAP 5/325 TABLET PO ONE (19:00)
[2018-07-15] MEDS ORDERED: PROMETHAZINE 25 MG SUPP PR PRN (19:00)
[2018-07-15] MEDS ORDERED: MORPHINE SULFATE 4 MG/ML, 1ML ONE ×2 (19:07→19:49)
[2018-07-15] MEDS ORDERED: METOPROLOL 1 MG/ML, 5ML ONE (19:07)
[2018-07-15 19:08] LABS: ALBUMIN 4.6 g/dL (3.4-5.0); CALCIUM 9.2 mg/dL (8.5-10.1); CREATININE 0.91 mg/dL (0.55-1.02)
[2018-07-15 19:12] LABS: TROPONIN I < 0.015 ng/mL (0.000-0.045)
[2018-07-15 19:24] LABS: ANION GAP 5 mmol/L (5-15); CHLORIDE 108 mmol/L (98-107)
[2018-07-15] MEDS ORDERED: MORPHINE SULFATE 4 MG/ML, 1ML IVPush ONE ×2 (19:30→20:00)
[2018-07-15] MEDS ORDERED: METOPROLOL 1 MG/ML, 5ML IVPush ONE (19:30)
[2018-07-15 20:58] VITALS: BP 138/60
== END 2018-07-15 21:00 | disposition home or self-care (01) ==
LOC: ED 19:42
DX: R07.9 Chest pain, unspecified (principal); R00.0 Tachycardia, unspecified; R11.2 Nausea with vomiting, unspecified; I10 Essential (primary) hypertension
CPT/HCPCS: 36415; 71045; 80048; 82040; 83880; 84484; 85025; 85379; 93005; 96361; 96374; 96376; 99285; J7030

== ENCOUNTER 2018-09-14 18:44 | Emergency (ER) | payer MEDICARE, BC ==
[~2018-09-14] VITALS: Ht 162.6 cm; Wt 60.0 kg
[~2018-09-14 18:44] MED LIST changes: +HYDR-3652 PO; -HYDR-883 PO
[2018-09-14] MEDS ORDERED: ALPR2TAB2 PO (19:31)
[2018-09-14] MEDS ORDERED: DIPH25CA61 PO (19:31)
[2018-09-14] MEDS ORDERED: HYDR-3307 PO (19:31)
[2018-09-14] MEDS ORDERED: HYDROcodone/APAP 5/325 TABLET PO ONE (20:00)
[2018-09-14] MEDS ORDERED: SODIUM CHLORIDE 0.9% 1,000ML IVBOLUS ONE (20:00)
[2018-09-14] MEDS ORDERED: PROMETHAZINE 25 MG/ML, 1ML IM ONE (20:00)
[2018-09-14] MEDS ORDERED: SODIUM CHLORIDE FLUSH 10ML SYR IVF ONE (20:00)
[2018-09-14] MEDS ORDERED: PROMETHAZINE 25 MG/ML, 1ML ONE (20:01)
[2018-09-14] MEDS ORDERED: HYDROcodone/APAP 5/325 TABLET ONE (20:01)
[2018-09-14 20:08] LABS: BASOPHILS # (AUTO) 0.06 x10^3/uL (0-0.1); BASOPHILS % (AUTO) 1 % (0-1); EOSINOPHILS # (AUTO) 0.07 x10^3/uL (0-0.4); EOSINOPHILS % (AUTO) 2 % (1-7); LYMPHOCYTES # (AUTO) 1.68 x10^3/uL (1-3.4); LYMPHOCYTES % (AUTO) 35 % (22-44); MD NO; MEAN CORPUSCULAR HGB CONC 33.1 g/dL (32.4-35.8); MEAN CORPUSCULAR VOLUME 84.4 fL (80-100); MEAN PLATELET VOLUME 8.1 fL (7.4-10.4); MONOCYTES # (AUTO) 0.24 x10^3/uL (0.2-0.8); MONOCYTES % (AUTO) 5 % (2-9); NEUTROPHILS # (AUTO) 2.81 x10^3/uL (1.8-6.8); NEUTROPHILS % (AUTO) 58 % (42-75); PLATELET COUNT 246 x10^3/uL (130-400); RED BLOOD COUNT 4.42 x10^6/uL (3.82-5.3); RED CELL DISTRIBUTION WIDTH 15.6 % (9.6-15.2)
[2018-09-14 20:17] LABS: ALANINE AMINOTRANSFERASE 23 U/L (12-78); ALBUMIN 4.1 g/dL (3.4-5.0); ANION GAP 8 mmol/L (5-15); CALCIUM 8.5 mg/dL (8.5-10.1); CHLORIDE 107 mmol/L (98-107); CREATININE 0.84 mg/dL (0.55-1.02)
[2018-09-14 20:19] LABS: ALKALINE PHOSPHATASE 61 U/L (45-117); BILIRUBIN,TOTAL 0.1 mg/dL (0.2-1.0); TOTAL PROTEIN 7.9 g/dL (6.4-8.2)
[2018-09-14 20:59] VITALS: BP 124/76
[2018-09-14 21:04] LABS: MICROSCOPIC NOT IND
[2018-09-14 21:05] LABS: CULTURE INDICATED? NO
== END 2018-09-14 21:32 | disposition left against medical advice (07) ==
LOC: ED 21:20
DX: R11.2 Nausea with vomiting, unspecified (principal); F11.20 Opioid dependence, uncomplicated; F13.20 Sedative, hypnotic or anxiolytic dependence, uncomplicated
CPT/HCPCS: 36415; 80053; 81003; 85025; 93005; 96360; 96372; 99285; J2550; J7030

== ENCOUNTER 2019-05-03 14:27 | Emergency (ER) | payer BC, MEDICARE ==
[~2019-05-03] VITALS: Ht 162.6 cm; Wt 60.0 kg
[~2019-05-03 14:27] MED LIST changes: +DIPH25CA61 PO; +HYDR-3307 PO
--- NOTE | 2019-05-03 14:30 | NUR ---
[facility] [place] FENT 25 BENEDRYL BY EMS POTS, ANXIETY. PORT IN RIGHT UPPER CHEST. ACCESS AVAILABLE WAS STUNG BY BEE IN THUMB, SELF ADMINISTERED EPI PEN AND BENEDRYL VIA PORT. INFO FROM EMS AND PATIENTS SO
[2019-05-03 14:32] VITALS: BP 141/80
[2019-05-03 14:52] LABS: BASOPHILS # (AUTO) 0.01 x10^3/uL (0-0.1); BASOPHILS % (AUTO) 0 % (0-1); EOSINOPHILS # (AUTO) 0.03 x10^3/uL (0-0.4); EOSINOPHILS % (AUTO) 0 % (1-7); LYMPHOCYTES # (AUTO) 2.07 x10^3/uL (1-3.4); LYMPHOCYTES % (AUTO) 29 % (22-44); MD NO; MEAN CORPUSCULAR HEMOGLOBIN 29.3 pg (27.0-34.8); MEAN CORPUSCULAR HGB CONC 33.1 g/dL (32.4-35.8); MEAN CORPUSCULAR VOLUME 88.6 fL (80-100); MEAN PLATELET VOLUME 7.1 fL (7.4-10.4); MONOCYTES # (AUTO) 0.31 x10^3/uL (0.2-0.8); MONOCYTES % (AUTO) 4 % (2-9); NEUTROPHILS # (AUTO) 4.84 x10^3/uL (1.8-6.8); NEUTROPHILS % (AUTO) 67 % (42-75); PLATELET COUNT 312 x10^3/uL (130-400); RED BLOOD COUNT 4.22 x10^6/uL (3.82-5.3); RED CELL DISTRIBUTION WIDTH 13.8 % (9.6-15.2)
[2019-05-03] MEDS ORDERED: HYDROmorphone 2 MG/ML, 1ML IVPush PRN (15:00)
[2019-05-03] MEDS ORDERED: methylPREDNISolone SOD SUCC 125 MG/2 ML IVPush ONE (15:00)
[2019-05-03] MEDS ORDERED: PLEASE ENTER HEIGHT AND WEIGHT MC SCH (15:00)
[2019-05-03] MEDS ORDERED: SODIUM CHLORIDE FLUSH 10ML SYR IVF ONE (15:00)
[2019-05-03] MEDS ORDERED: HYDROmorphone 2 MG/ML, 1ML ONE (15:01)
[2019-05-03] MEDS ORDERED: methylPREDNISolone SOD SUCC 125 MG/2 ML ONE (15:01)
[2019-05-03 15:02] LABS: ALBUMIN 4.2 g/dL (3.4-5.0); ANION GAP 6 mmol/L (5-15); CALCIUM 8.8 mg/dL (8.5-10.1); CHLORIDE 108 mmol/L (98-107); CREATININE 1.03 mg/dL (0.55-1.02)
[2019-05-03] MEDS ORDERED: AMPH20TA2 PO (15:13)
--- NOTE | 2019-05-03 15:26 | NUR ---
Pt states "My pain is doing way better" vs stable. pt resting comfortable. at bedside.
--- NOTE | 2019-05-03 17:03 | NUR ---
PT MERLINE W INSTRUCTIONS. PT AGREES. NO FURTHER QUESTIONS
== END 2019-05-03 17:11 | disposition home or self-care (01) ==
LOC: ED 16:30
DX: T63.441A Toxic effect of venom of bees, accidental (unintentional), initial encounter (principal); T78.2XXA Anaphylactic shock, unspecified, initial encounter; X58.XXXA Exposure to other specified factors, initial encounter; I10 Essential (primary) hypertension; Z90.710 Acquired absence of both cervix and uterus
CPT/HCPCS: 36415; 80048; 82040; 85025; 93005; 96374; 96375; 99284; J1170; J2930

== ENCOUNTER 2019-05-26 12:40 | Emergency (ER) | payer MEDICARE, BC ==
[~2019-05-26] VITALS: Ht 162.6 cm; Wt 61.9 kg
[~2019-05-26 12:40] MED LIST changes: +AMPH20TA2 PO
--- NOTE | 2019-05-26 12:55 | NUR ---
PT HERE FOR PICC LINE DRESSING CHANGE. PT HAD RECENT HOSPITAL STAY [facility] AND HAD A PORT REMOVED D/T INFECTION. SHE THEN HAD A PICC LINE PLACED. PT WITH HX OF ANNIE DOWNING.
--- NOTE | 2019-05-26 13:45 | NUR ---
DURING PICC DRESSING CHANGE PICC LINE PULLED BACK SLIGHTLY A RESULT OF OLD DRESSEING ADHERED TO LINE AND BIOPATCH. APPROX 1 CM. PT IN NAD, DENIES CHEST DISCOMFORT OR SOB. NO PAIN NOTE3D DURING LINE FLUSH. POSITIVE BLOOD RETURN. EDPA AWARE AND NO NEW ORDERS RECIEVED.
[2019-05-26 14:21] VITALS: BP 118/72
--- NOTE | 2019-05-26 14:21 | NUR ---
Patient/Caregiver given discharge instructions and they have confirmed that they understand the instructions. Patient ambulatory with steady gait.
== END 2019-05-26 14:28 | disposition home or self-care (01) ==
LOC: ED 13:49
DX: Z45.2 Encounter for adjustment and management of vascular access device (principal); Z90.710 Acquired absence of both cervix and uterus; F31.9 Bipolar disorder, unspecified; I10 Essential (primary) hypertension; Z88.1 Allergy status to other antibiotic agents; Z88.8 Allergy status to other drugs, medicaments and biological substances; Z79.899 Other long term (current) drug therapy
CPT/HCPCS: 99282; 99285

== ENCOUNTER 2019-05-28 14:03 | Emergency (ER) | payer BC, MEDICARE ==
[~2019-05-28] VITALS: Ht 162.6 cm; Wt 61.1 kg
[2019-05-28 14:05] VITALS: BP 116/84
--- NOTE | 2019-05-28 14:45 | NUR ---
PA AT BEDSIDE EXAMINING PT. PT GIVEN OK BY PA TO TAKE HER OWN PERCOCET 10. SMALL HOLE NOTED IN SKIN AT SITE OF RIGHT CHEST WALL PORTACATH AND PT C/O GOING UP NECK WHERE IT LINES FROM PORT ARE. PT STATES SHE DID NOT FEEL WELL LAST NIGHT WITH DIAPHORESIS. ADDTIONALLY STATES N/V/D TODAY. PT STATES SHE JUST FINSHED ANTIBIOTICS FOR INFECTED PORT AND NOTICED GREEN DISCHARGE COMING OUT OF SKIN AT PORT SITE TODAY
[2019-05-28 15:05] LABS: BASOPHILS # (AUTO) 0.01 x10^3/uL (0-0.1); BASOPHILS % (AUTO) 0 % (0-1); EOSINOPHILS # (AUTO) 0.02 x10^3/uL (0-0.4); EOSINOPHILS % (AUTO) 1 % (1-7); LYMPHOCYTES # (AUTO) 1.25 x10^3/uL (1-3.4); LYMPHOCYTES % (AUTO) 31 % (22-44); MD NO; MEAN CORPUSCULAR HEMOGLOBIN 29.3 pg (27.0-34.8); MEAN CORPUSCULAR HGB CONC 33.3 g/dL (32.4-35.8); MEAN CORPUSCULAR VOLUME 87.9 fL (80-100); MEAN PLATELET VOLUME 7.3 fL (7.4-10.4); MONOCYTES % (AUTO) 7 % (2-9); NEUTROPHILS # (AUTO) 2.51 x10^3/uL (1.8-6.8); NEUTROPHILS % (AUTO) 61 % (42-75); PLATELET COUNT 260 x10^3/uL (130-400); RED BLOOD COUNT 4.13 x10^6/uL (3.82-5.3); RED CELL DISTRIBUTION WIDTH 13.9 % (9.6-15.2)
[2019-05-28 15:11] LABS: ANION GAP 7 mmol/L (5-15); CHLORIDE 105 mmol/L (98-107)
--- NOTE | 2019-05-28 15:53 | NUR ---
MD AT BEDSIDE TALKING WITH PT ABOUT OPTIONS
== END 2019-05-28 16:35 | disposition home or self-care (01) ==
LOC: ED 15:50
DX: T85.9XXA Unspecified complication of internal prosthetic device, implant and graft, initial encounter (principal); I10 Essential (primary) hypertension; F31.9 Bipolar disorder, unspecified; Z90.49 Acquired absence of other specified parts of digestive tract; Z90.710 Acquired absence of both cervix and uterus; Z79.899 Other long term (current) drug therapy; Z88.8 Allergy status to other drugs, medicaments and biological substances
CPT/HCPCS: 36415; 80048; 85025; 87040; 93005; 99284

== ENCOUNTER 2019-05-31 16:39 | Emergency (ER) | payer BC, MEDICARE ==
[~2019-05-31] VITALS: Ht 167.6 cm; Wt 62.6 kg
[2019-05-31 16:42] VITALS: BP 122/79
--- NOTE | 2019-05-31 18:22 | NUR ---
PT AMBULATORY TO ED ROOM 16 W/ STEADY GAIT. PIC LINE UPPER RT ARM. STATES PIC LINE GOT PULLED TODAY, WHEN SHE FLUSHED IT, EXPERIENCED BURNING SENSATION, SPOKE W/ HER PHYSICIAN. PER PT, PIC LINE MAY BE PULLED OR REDRESSED FOR HER PHYSICIAN TO ADDRESS. PT STATES SHE HAS AZUL DISEASE AND DOES HER OWN IN-HOME INFUSIONS. STATES HER PHYSICIAN WILL GIVE HER THE MEDS IN-OFFICE IF PIC LINE IS PULLED. ERP WILL BE NOTIFIED. PIC LINE DRESSING INTACT, NO DISCHARGE OR DRAINAGE NOTED.
[2019-05-31] MEDS ORDERED: DIPHENHYDRAMINE 50 MG/ML, 1ML IVPush ONE (20:00)
[2019-05-31] MEDS ORDERED: DIPHENHYDRAMINE 50 MG/ML, 1ML ONE (20:27)
== END 2019-05-31 20:33 | disposition home or self-care (01) ==
LOC: ED 18:55
DX: M79.621 Pain in right upper arm (principal); Z90.710 Acquired absence of both cervix and uterus; F31.9 Bipolar disorder, unspecified; I10 Essential (primary) hypertension; Z45.2 Encounter for adjustment and management of vascular access device
CPT/HCPCS: 96374; 99283; J1200

== ENCOUNTER 2019-06-05 17:30 | Inpatient (IN) | payer BC, MEDICARE ==
[~2019-06-05] VITALS: Ht 162.6 cm; Wt 61.0 kg
[~2019-06-05 17:30] MED LIST changes: +DIPH25CA61 IV; -DIPH25CA61 PO; -HYDR-3307 PO; +HYDR-36 PO
--- NOTE | 2019-06-05 17:45 | NUR ---
PT BIB EMS. PT REPORTS FEELING SICK FOR THE LAST 2 DAYS. SHE HAS A R CHEST PORT AND THE LAST TIME THAT SHE DEACCESSED HER PORT (05/16/19) GREEN PUSS SQUIRTED OUT OF HER PORT. PT STATES SHE HAS HAD A PORT INFECTION IN THE PAST AND THIS FEELS LIKE "THE SAME LAST TIME".
[2019-06-05] MEDS ORDERED: SODIUM CHLORIDE 0.9% 1,000 ML IV ONE ×2 (18:04→19:26)
[2019-06-05] MEDS ORDERED: PIPERACILLIN/TAZO/PMX 4.5GM 100 ML IVPB ONE (18:30)
[2019-06-05] MEDS ORDERED: VANCOMYCIN PER PHARMACY MC ONE (18:30)
[2019-06-05] MEDS ORDERED: SODIUM CHLORIDE 0.9% 1,000ML IVBOLUS ONE (18:30)
[2019-06-05] MEDS ORDERED: SODIUM CHLORIDE FLUSH 10ML SYR IVF ONE (18:30)
[2019-06-05] MEDS ORDERED: VANCOMYCIN 1,600 MG in SODIUM CHLORIDE 0.9% 250 ML IV ONE (18:30)
[2019-06-05 18:38] LABS: BASOPHILS # (AUTO) 0.01 x10^3/uL (0-0.1); BASOPHILS % (AUTO) 0 % (0-1); EOSINOPHILS # (AUTO) 0.13 x10^3/uL (0-0.4); EOSINOPHILS % (AUTO) 3 % (1-7); LYMPHOCYTES # (AUTO) 1.69 x10^3/uL (1-3.4); LYMPHOCYTES % (AUTO) 37 % (22-44); MD NO; MEAN CORPUSCULAR HEMOGLOBIN 29.2 pg (27.0-34.8); MEAN CORPUSCULAR VOLUME 88.4 fL (80-100); MONOCYTES # (AUTO) 0.29 x10^3/uL (0.2-0.8); MONOCYTES % (AUTO) 6 % (2-9); NEUTROPHILS # (AUTO) 2.44 x10^3/uL (1.8-6.8); NEUTROPHILS % (AUTO) 54 % (42-75); PLATELET COUNT 246 x10^3/uL (130-400); RED BLOOD COUNT 3.82 x10^6/uL (3.82-5.3); RED CELL DISTRIBUTION WIDTH 14.5 % (9.6-15.2)
[2019-06-05] MEDS ORDERED: HYDROmorphone 2 MG/ML, 1ML ONE ×2 (18:38→21:24)
[2019-06-05] MEDS: HYDROmorphone 1 MG/ML, 1ML INJ IVPush PRN ×2 (18:44→21:26)
--- NOTE | 2019-06-05 18:50 | NUR ---
MEDICATIONS ORDERED FROM PHARMACY.
--- NOTE | 2019-06-05 18:53 | NUR ---
VSS. PT RESTING AND COMFORTABLE. PT MEDICATED FOR PAIN. REPORT GIVEN TO SALLIE.
[2019-06-05 18:54] LABS: ALANINE AMINOTRANSFERASE 23 U/L (12-78); ALBUMIN 3.8 g/dL (3.4-5.0); ANION GAP 5 mmol/L (5-15); CALCIUM 8.5 mg/dL (8.5-10.1); CHLORIDE 111 mmol/L (98-107); CREATININE 0.76 mg/dL (0.55-1.02)
[2019-06-05 18:56] LABS: ALKALINE PHOSPHATASE 61 U/L (45-117); BILIRUBIN,TOTAL 0.3 mg/dL (0.2-1.0); TOTAL PROTEIN 7.3 g/dL (6.4-8.2)
--- NOTE | 2019-06-05 19:10 | NUR ---
REPORT RECEIVED FROM ISAURA TEJEDA.
[2019-06-05] MEDS ORDERED: SODIUM CHLORIDE FLUSH 10ML SYR IVF PRN (19:30)
--- NOTE | 2019-06-05 20:05 | NUR ---
PT IS NOT ABLE TO PROVIDE URINE SAMPLE AT THIS TIME. BEDSIDE COMMODO IN ROOM.
--- NOTE | 2019-06-05 20:11 | NUR ---
ABX AND NS INFUSING AT THIS TIME. PT TOLERATED WELL.
[2019-06-05] MEDS: SODIUM CHLORIDE 0.9% 1,000 ML IV SCH (20:48)
[2019-06-05] MEDS: HYDROcodone/APAP 10/325 MG TABLET PO SCH ×2 (21:00→21:17)
[2019-06-05] MEDS ORDERED: DIPHENHYDRAMINE 50 MG/ML, 1ML IVPush ONE (21:00)
[2019-06-05] MEDS ORDERED: ENOXAPARIN 40 MG/0.4 ML SQ SCH (21:00)
[2019-06-05 21:11] LABS: HCT (SEDRATE) 33.8 % (34.6-47.8)
[2019-06-05] MEDS ORDERED: PROMETHAZINE 25 MG SUPP PR ONE (21:13)
[2019-06-05] MEDS ORDERED: HYDROcodone/APAP 10/325 MG TABLET ONE (21:13)
[2019-06-05] MEDS ORDERED: ENOXAPARIN 40 MG/0.4 ML ONE (21:13)
[2019-06-05] MEDS ORDERED: DIPHENHYDRAMINE 50 MG/ML, 1ML ONE (21:13)
[2019-06-05] MEDS: PROMETHAZINE 25 MG SUPP PR SCH (21:18)
[2019-06-05 21:20] LABS: C-REACTIVE PROTEIN, QUANT 0.17 mg/dL (0.02-0.49)
--- NOTE | 2019-06-05 21:27 | NUR ---
PT MEDICATED PER EMAR. PT TOLERATED WELL. PT'S AOX4. RESPS EVEN AND UNLABORED. ABX/NS STILL INFUSING NOW.
--- NOTE | 2019-06-05 21:47 | NUR ---
REPORT GIVEN TO MANUEL TEJEDA. ALL QUESTIONS ANSWERED.
[2019-06-05 22:28] VITALS: BP 125/86
[2019-06-05 23:16] LABS: MICROSCOPIC NOT IND
[2019-06-05 23:19] LABS: CULTURE INDICATED? NO
[2019-06-05 23:31] LABS: AMPHETAMINE SCREEN, URINE Positive (Negative); BARBITURATE SCREEN, URINE Negative (Negative); BENZODIAZEPINE SCREEN, URINE Positive (Negative); CANNABINOID SCREEN, URINE Positive (Negative); COCAINE SCREEN, URINE Negative (Negative); METHADONE SCREEN, URINE Negative (Negative); OPIATE SCREEN, URINE Positive (Negative)
[2019-06-05] MEDS: morphine SULFATE 10 MG/ML, 1ML IVPush PRN (23:56)
[2019-06-06 00:57] LABS: RAPID INFLUENZA A Negative (Negative); RAPID INFLUENZA B Negative (Negative)
[2019-06-06] MEDS: KETOROLAC 30 MG/1 ML IV PRN ×4 (01:13→21:42)
[2019-06-06] MEDS: LORazepam 1MG TABLET PO PRN ×2 (01:13→15:34)
[2019-06-06] MEDS: METHOCARBAMOL 500 MG TABLET PO PRN ×2 (01:13→09:16)
[2019-06-06 02:06] VITALS: BP 100/66
[2019-06-06] MEDS: morphine SULFATE 10 MG/ML, 1ML IVPush PRN ×5 (04:09→20:15)
[2019-06-06] MEDS: METOPROLOL SUCCINATE 25 MG TAB.ER.24H PO SCH (05:58)
[2019-06-06] MEDS: HYDROcodone/APAP 10/325 MG TABLET PO SCH ×4 (05:58→20:15)
[2019-06-06 06:34] LABS: BASOPHILS # (AUTO) 0.02 x10^3/uL (0-0.1); BASOPHILS % (AUTO) 0 % (0-1); EOSINOPHILS # (AUTO) 0.15 x10^3/uL (0-0.4); EOSINOPHILS % (AUTO) 3 % (1-7); LYMPHOCYTES # (AUTO) 1.96 x10^3/uL (1-3.4); LYMPHOCYTES % (AUTO) 42 % (22-44); MD NO; MEAN CORPUSCULAR HEMOGLOBIN 29.5 pg (27.0-34.8); MEAN CORPUSCULAR HGB CONC 33.4 g/dL (32.4-35.8); MEAN CORPUSCULAR VOLUME 88.4 fL (80-100); MEAN PLATELET VOLUME 7.3 fL (7.4-10.4); MONOCYTES # (AUTO) 0.27 x10^3/uL (0.2-0.8); MONOCYTES % (AUTO) 6 % (2-9); NEUTROPHILS # (AUTO) 2.22 x10^3/uL (1.8-6.8); NEUTROPHILS % (AUTO) 48 % (42-75); PLATELET COUNT 189 x10^3/uL (130-400); RED BLOOD COUNT 3.34 x10^6/uL (3.82-5.3); RED CELL DISTRIBUTION WIDTH 14.4 % (9.6-15.2)
[2019-06-06 07:16] VITALS: BP 134/88
[2019-06-06] MEDS: FLUOXETINE HCL 20 MG CAPSULE PO SCH (07:53)
[2019-06-06 08:00] LABS: HCG UR SG 1.027 (1.003-1.030)
[2019-06-06] MEDS: PROMETHAZINE 25 MG SUPP PR SCH ×3 (08:52→21:33)
[2019-06-06] MEDS: SODIUM CHLORIDE 0.9% 1,000 ML IV SCH (08:53)
[2019-06-06] MEDS: DIPHENHYDRAMINE 50 MG/ML, 1ML IVPush PRN ×2 (11:45→20:15)
[2019-06-06] MEDS ORDERED: PHARMACOKINETIC MONITORING MC PRN (12:30)
[2019-06-06] MEDS ORDERED: PHARMACOKINETIC CONSULTATION MC ONE (12:30)
[2019-06-06] MEDS ORDERED: ZOSYN PER PHARMACY MC PRN (12:30)
[2019-06-06] MEDS ORDERED: VANCOMYCIN PER PHARMACY MC PRN (12:30)
[2019-06-06] MEDS ORDERED: HYDROmorphone 2 MG/ML, 1ML IM PRN (12:30)
[2019-06-06 12:47] VITALS: BP 123/86
[2019-06-06] MEDS ORDERED: PIPERACILLIN/TAZO/PMX 3.375GM 50 ML IV SCH (13:00)
[2019-06-06] MEDS ORDERED: VANCOMYCIN PMX 1GM/200ML 200 ML IVPB SCH (14:00)
[2019-06-06] MEDS: HEPARIN 5,000 UNITS/ML, 1ML SQ SCH ×2 (14:10→19:57)
[2019-06-06] MEDS ORDERED: OMNIPAQUE 350 MG/ML, 100ML BOTTLE ONE (14:40)
[2019-06-06] MEDS: HYDROmorphone 2 MG/ML, 1ML IV PRN ×2 (16:49→22:49)
[2019-06-06 19:58] VITALS: BP 100/65
[2019-06-07 01:26] VITALS: BP 96/63
[2019-06-07] MEDS: morphine SULFATE 10 MG/ML, 1ML IVPush PRN ×3 (01:39→08:24)
[2019-06-07] MEDS: LORazepam 1MG TABLET PO PRN (01:57)
[2019-06-07] MEDS: SODIUM CHLORIDE 0.9% 1,000 ML IV SCH ×2 (03:41→15:07)
[2019-06-07] MEDS: KETOROLAC 30 MG/1 ML IV PRN ×2 (03:42→20:46)
[2019-06-07] MEDS: HEPARIN 5,000 UNITS/ML, 1ML SQ SCH ×3 (04:07→20:46)
[2019-06-07 05:40] VITALS: BP 110/73
[2019-06-07] MEDS: HYDROcodone/APAP 10/325 MG TABLET PO SCH ×4 (05:44→22:15)
[2019-06-07] MEDS: HYDROmorphone 2 MG/ML, 1ML IV PRN ×3 (05:44→23:02)
[2019-06-07] MEDS: METOPROLOL SUCCINATE 25 MG TAB.ER.24H PO SCH (05:44)
[2019-06-07 08:21] LABS: ALANINE AMINOTRANSFERASE 18 U/L (12-78); ALBUMIN 3.2 g/dL (3.4-5.0); ANION GAP 7 mmol/L (5-15); CALCIUM 7.8 mg/dL (8.5-10.1); CHLORIDE 108 mmol/L (98-107); CREATININE 0.73 mg/dL (0.55-1.02)
[2019-06-07 08:23] LABS: ALKALINE PHOSPHATASE 55 U/L (45-117); BILIRUBIN,TOTAL 0.2 mg/dL (0.2-1.0); TOTAL PROTEIN 6.2 g/dL (6.4-8.2)
[2019-06-07] MEDS: FLUOXETINE HCL 20 MG CAPSULE PO SCH (08:23)
[2019-06-07] MEDS: DIPHENHYDRAMINE 50 MG/ML, 1ML IVPush PRN ×2 (08:24→20:46)
[2019-06-07 08:34] LABS: BASOPHILS # (AUTO) 0.03 x10^3/uL (0-0.1); BASOPHILS % (AUTO) 1 % (0-1); EOSINOPHILS # (AUTO) 0.19 x10^3/uL (0-0.4); EOSINOPHILS % (AUTO) 4 % (1-7); LYMPHOCYTES # (AUTO) 1.63 x10^3/uL (1-3.4); LYMPHOCYTES % (AUTO) 36 % (22-44); MD NO; MEAN CORPUSCULAR HEMOGLOBIN 28.8 pg (27.0-34.8); MEAN CORPUSCULAR HGB CONC 32.9 g/dL (32.4-35.8); MEAN CORPUSCULAR VOLUME 87.7 fL (80-100); MEAN PLATELET VOLUME 7.4 fL (7.4-10.4); MONOCYTES # (AUTO) 0.25 x10^3/uL (0.2-0.8); MONOCYTES % (AUTO) 6 % (2-9); NEUTROPHILS % (AUTO) 53 % (42-75); PLATELET COUNT 178 x10^3/uL (130-400); RED BLOOD COUNT 3.44 x10^6/uL (3.82-5.3); RED CELL DISTRIBUTION WIDTH 14.3 % (9.6-15.2)
[2019-06-07] MEDS: PROMETHAZINE 25 MG SUPP PR SCH ×3 (09:45→22:15)
[2019-06-07 10:51] VITALS: BP 114/75
[2019-06-07] MEDS: TAMSULOSIN 0.4 MG CAP.ER.24H PO SCH (11:11)
[2019-06-07 12:42] VITALS: BP 118/75
[2019-06-07] MEDS ORDERED: LIDOCAINE 1%, 20ML ONE (12:53)
[2019-06-07] MEDS ORDERED: FLUMAZENIL 0.1 MG/1 ML, 5ML ONE (12:55)
[2019-06-07] MEDS ORDERED: FENTANYL PF 100 MCG/2ML ONE ×2 (12:55→13:29)
[2019-06-07] MEDS ORDERED: NALOXONE 1 MG/ML, 2ML ONE (12:55)
[2019-06-07] MEDS ORDERED: MIDAZOLAM 1 MG/ML, 5ML ONE ×2 (12:56→13:29)
[2019-06-07] MEDS ORDERED: DAPTOMYCIN 240 MG in SODIUM CHLORIDE 0.9% 100 ML IV SCH (16:30)
[2019-06-07] MEDS ORDERED: HYDROmorphone 1 MG/ML, 1ML INJ IV ONE (17:00)
[2019-06-07] MEDS: DAPTOMYCIN 250 MG in SODIUM CHLORIDE 0.9% 100 ML IV SCH (17:04)
[2019-06-07] MEDS ORDERED: HYDROmorphone 2 MG/ML, 1ML IV ONE (17:30)
[2019-06-07] MEDS ORDERED: GUAIFENESIN 100 MG/5 ML, 10ML UDC ONE (18:09)
[2019-06-07] MEDS: GUAIFENESIN 100 MG/5 ML, 5ML UDC PO PRN (18:14)
[2019-06-07] MEDS: MEROPENEM 500 MG in SODIUM CHLORIDE 0.9% 100 ML IV SCH (18:14)
[2019-06-07 18:50] VITALS: BP 99/69
[2019-06-07] MEDS ORDERED: CATHFLO-ALTEPLASE 2 MG/2 ML CATHFLUSH ONE (21:30)
[2019-06-08 00:04] VITALS: BP 120/81
[2019-06-08] MEDS: SODIUM CHLORIDE 0.9% 1,000 ML IV SCH (01:23)
[2019-06-08] MEDS: MEROPENEM 500 MG in SODIUM CHLORIDE 0.9% 100 ML IV SCH ×2 (01:23→09:25)
[2019-06-08] MEDS ORDERED: GUAIFENESIN 100 MG/5 ML, 10ML UDC ONE (01:42)
[2019-06-08] MEDS: GUAIFENESIN 100 MG/5 ML, 5ML UDC PO PRN ×2 (01:44→15:42)
[2019-06-08] MEDS: KETOROLAC 30 MG/1 ML IV PRN ×2 (02:48→22:43)
[2019-06-08] MEDS: HEPARIN 5,000 UNITS/ML, 1ML SQ SCH ×2 (05:05→12:29)
[2019-06-08] MEDS: HYDROmorphone 2 MG/ML, 1ML IV PRN ×6 (05:06→23:47)
[2019-06-08 05:42] LABS: BASOPHILS # (AUTO) 0.04 x10^3/uL (0-0.1); BASOPHILS % (AUTO) 1 % (0-1); EOSINOPHILS # (AUTO) 0.19 x10^3/uL (0-0.4); EOSINOPHILS % (AUTO) 5 % (1-7); LYMPHOCYTES # (AUTO) 1.83 x10^3/uL (1-3.4); LYMPHOCYTES % (AUTO) 45 % (22-44); MD NO; MEAN CORPUSCULAR HEMOGLOBIN 28.9 pg (27.0-34.8); MEAN CORPUSCULAR HGB CONC 33.3 g/dL (32.4-35.8); MEAN CORPUSCULAR VOLUME 86.9 fL (80-100); MEAN PLATELET VOLUME 7.4 fL (7.4-10.4); MONOCYTES # (AUTO) 0.24 x10^3/uL (0.2-0.8); MONOCYTES % (AUTO) 6 % (2-9); NEUTROPHILS # (AUTO) 1.76 x10^3/uL (1.8-6.8); NEUTROPHILS % (AUTO) 43 % (42-75); PLATELET COUNT 181 x10^3/uL (130-400); RED BLOOD COUNT 3.34 x10^6/uL (3.82-5.3); RED CELL DISTRIBUTION WIDTH 13.9 % (9.6-15.2)
[2019-06-08 05:51] LABS: ANION GAP 5 mmol/L (5-15); CHLORIDE 109 mmol/L (98-107)
[2019-06-08 05:55] LABS: ALANINE AMINOTRANSFERASE 23 U/L (12-78); ALKALINE PHOSPHATASE 61 U/L (45-117); BILIRUBIN,TOTAL 0.2 mg/dL (0.2-1.0); TOTAL PROTEIN 5.9 g/dL (6.4-8.2)
[2019-06-08 06:29] VITALS: BP 114/61
[2019-06-08] MEDS: METOPROLOL SUCCINATE 25 MG TAB.ER.24H PO SCH (06:30)
[2019-06-08] MEDS: HYDROcodone/APAP 10/325 MG TABLET PO SCH (06:30)
[2019-06-08 08:40] VITALS: BP 104/71
[2019-06-08] MEDS ORDERED: TAMSULOSIN 0.4 MG CAP.ER.24H PO SCH (09:00)
[2019-06-08] MEDS: PROMETHAZINE 25 MG SUPP PR SCH ×3 (09:00→20:36)
[2019-06-08] MEDS: TAMSULOSIN 0.4 MG CAP.ER.24H PO SCH (09:23)
[2019-06-08] MEDS: FLUOXETINE HCL 20 MG CAPSULE PO SCH (09:24)
[2019-06-08] MEDS: DIPHENHYDRAMINE 50 MG/ML, 1ML IVPush PRN ×2 (09:24→20:48)
[2019-06-08] MEDS ORDERED: GABAPENTIN 100 MG CAPSULE PO SCH (09:30)
[2019-06-08] MEDS ORDERED: OXYC-432 PO (10:36)
[2019-06-08] MEDS: OXYcodone/APAP 10/325MG TABLET PO PRN ×2 (12:29→20:35)
[2019-06-08] MEDS ORDERED: LACTULOSE 20 GM/30 ML UDC PO PRN (13:30)
[2019-06-08] MEDS ORDERED: BISACODYL 10 MG SUPP PR PRN (13:30)
[2019-06-08 13:43] VITALS: BP 112/76
[2019-06-08] MEDS: METHOCARBAMOL 500 MG TABLET PO PRN (14:39)
[2019-06-08] MEDS: DAPTOMYCIN 250 MG in SODIUM CHLORIDE 0.9% 100 ML IV SCH (16:52)
[2019-06-08] MEDS: MEROPENEM 1,000 MG in SODIUM CHLORIDE 0.9% 100 ML IV SCH (17:30)
[2019-06-08 17:44] LABS: CLOSTRIDIUM DIFFICILE ANTIGEN POSITIVE; CLOSTRIDIUM DIFFICILE TOXIN NEGATIVE (Negative)
[2019-06-08] MEDS: SENNA/DOCUSATE TABLET PO SCH (20:36)
[2019-06-08 21:33] VITALS: BP 98/64
[2019-06-09] MEDS: MEROPENEM 1,000 MG in SODIUM CHLORIDE 0.9% 100 ML IV SCH ×3 (01:26→18:43)
[2019-06-09 02:02] VITALS: BP 99/67
[2019-06-09] MEDS: HYDROmorphone 2 MG/ML, 1ML IV PRN ×5 (03:56→20:55)
[2019-06-09 06:10] VITALS: BP 109/74
[2019-06-09] MEDS: OXYcodone/APAP 10/325MG TABLET PO PRN ×3 (06:18→18:43)
[2019-06-09] MEDS: METOPROLOL SUCCINATE 25 MG TAB.ER.24H PO SCH (06:18)
[2019-06-09] MEDS: DOCUSATE 100 MG CAPSULE PO SCH (08:35)
[2019-06-09] MEDS: PROMETHAZINE 25 MG SUPP PR SCH ×3 (09:00→18:45)
[2019-06-09] MEDS: ENOXAPARIN 40 MG/0.4 ML SQ SCH (09:43)
[2019-06-09] MEDS: FLUOXETINE HCL 20 MG CAPSULE PO SCH (09:43)
[2019-06-09] MEDS: TAMSULOSIN 0.4 MG CAP.ER.24H PO SCH (09:43)
[2019-06-09] MEDS: VANCOMYCIN 50 MG/ML ORAL SUSP PO SCH ×3 (09:59→21:28)
[2019-06-09] MEDS: DIPHENHYDRAMINE 50 MG/ML, 1ML IVPush PRN ×3 (10:00→23:38)
[2019-06-09 12:50] VITALS: BP 99/65
[2019-06-09 15:00] VITALS: BP 90/58
[2019-06-09 16:31] VITALS: BP 103/70
[2019-06-09] MEDS: DAPTOMYCIN 250 MG in SODIUM CHLORIDE 0.9% 100 ML IV SCH (17:33)
[2019-06-09] MEDS: GUAIFENESIN 100 MG/5 ML, 5ML UDC PO PRN (18:43)
[2019-06-09 19:20] VITALS: BP 96/63
[2019-06-09] MEDS: SENNA/DOCUSATE TABLET PO SCH (20:54)
[2019-06-09] MEDS ORDERED: DIPHENHYDRAMINE 50 MG/ML, 1ML IVPush ONE (21:00)
[2019-06-09] MEDS: METHOCARBAMOL 500 MG TABLET PO PRN (23:38)
[2019-06-10] MEDS: MEROPENEM 1,000 MG in SODIUM CHLORIDE 0.9% 100 ML IV SCH ×3 (04:15→20:20)
[2019-06-10 04:18] VITALS: BP 104/71
[2019-06-10] MEDS: VANCOMYCIN 50 MG/ML ORAL SUSP PO SCH ×4 (04:18→20:21)
[2019-06-10 07:30] VITALS: BP 114/67
[2019-06-10] MEDS: DOCUSATE 100 MG CAPSULE PO SCH (08:51)
[2019-06-10] MEDS: PROMETHAZINE 25 MG SUPP PR SCH ×3 (09:00→21:00)
[2019-06-10] MEDS: METOPROLOL SUCCINATE 25 MG TAB.ER.24H PO SCH (12:27)
[2019-06-10] MEDS: FLUOXETINE HCL 20 MG CAPSULE PO SCH (12:28)
[2019-06-10] MEDS: TAMSULOSIN 0.4 MG CAP.ER.24H PO SCH (12:28)
[2019-06-10] MEDS: ENOXAPARIN 40 MG/0.4 ML SQ SCH (12:29)
[2019-06-10 12:45] VITALS: BP 104/71
[2019-06-10] MEDS: HYDROmorphone 2 MG/ML, 1ML IV PRN ×3 (12:53→21:55)
[2019-06-10] MEDS: DIPHENHYDRAMINE 50 MG/ML, 1ML IVPush PRN ×2 (12:53→21:55)
[2019-06-10] MEDS: DAPTOMYCIN 250 MG in SODIUM CHLORIDE 0.9% 100 ML IV SCH (17:37)
[2019-06-10 19:59] VITALS: BP 102/69
[2019-06-11] MEDS: ACETAMINOPHEN 325 MG TABLET PO PRN (01:37)
[2019-06-11] MEDS: LORazepam 1MG TABLET PO PRN (02:02)
[2019-06-11 02:04] VITALS: BP 108/73
[2019-06-11] MEDS: MEROPENEM 1,000 MG in SODIUM CHLORIDE 0.9% 100 ML IV SCH ×3 (04:10→19:54)
[2019-06-11] MEDS: VANCOMYCIN 50 MG/ML ORAL SUSP PO SCH ×4 (04:11→21:32)
[2019-06-11] MEDS: HYDROmorphone 2 MG/ML, 1ML IV PRN ×4 (04:19→21:33)
[2019-06-11 05:43] VITALS: BP 102/69
[2019-06-11] MEDS: METOPROLOL SUCCINATE 25 MG TAB.ER.24H PO SCH (05:45)
[2019-06-11 07:47] VITALS: BP 95/65
[2019-06-11] MEDS ORDERED: PROMETHAZINE 25 MG/ML, 1ML IM PRN (09:00)
[2019-06-11] MEDS: FLUOXETINE HCL 20 MG CAPSULE PO SCH (09:52)
[2019-06-11] MEDS: TAMSULOSIN 0.4 MG CAP.ER.24H PO SCH (09:52)
[2019-06-11] MEDS: DOCUSATE 100 MG CAPSULE PO SCH (09:52)
[2019-06-11] MEDS: PROMETHAZINE 25 MG SUPP PR SCH ×3 (09:57→21:33)
[2019-06-11] MEDS: SODIUM CHLORIDE 0.9% 1,000 ML IV SCH ×2 (10:00→21:32)
[2019-06-11] MEDS: DIPHENHYDRAMINE 50 MG/ML, 1ML IVPush PRN ×2 (10:22→21:33)
[2019-06-11 12:28] VITALS: BP 100/68
[2019-06-11] MEDS: ENOXAPARIN 40 MG/0.4 ML SQ SCH (12:33)
[2019-06-11] MEDS: OXYcodone/APAP 10/325MG TABLET PO PRN ×2 (13:00→19:54)
[2019-06-11] MEDS: METHOCARBAMOL 500 MG TABLET PO PRN (13:00)
[2019-06-11] MEDS: DAPTOMYCIN 250 MG in SODIUM CHLORIDE 0.9% 100 ML IV SCH (18:04)
[2019-06-11 19:21] VITALS: BP 94/64
[2019-06-11 21:11] VITALS: BP 97/67
[2019-06-12 00:07] VITALS: BP 103/69
[2019-06-12] MEDS: OXYcodone/APAP 10/325MG TABLET PO PRN ×4 (03:06→18:31)
[2019-06-12] MEDS: VANCOMYCIN 50 MG/ML ORAL SUSP PO SCH ×4 (04:24→20:31)
[2019-06-12] MEDS: MEROPENEM 1,000 MG in SODIUM CHLORIDE 0.9% 100 ML IV SCH ×3 (04:24→20:31)
[2019-06-12 05:08] LABS: ALANINE AMINOTRANSFERASE 91 U/L (12-78); ALBUMIN 2.9 g/dL (3.4-5.0); ANION GAP 5 mmol/L (5-15); CHLORIDE 109 mmol/L (98-107); CREATININE 0.62 mg/dL (0.55-1.02)
[2019-06-12 05:11] LABS: ALKALINE PHOSPHATASE 74 U/L (45-117); BILIRUBIN,TOTAL 0.2 mg/dL (0.2-1.0); TOTAL PROTEIN 6.3 g/dL (6.4-8.2)
[2019-06-12 05:23] LABS: BASOPHILS # (AUTO) 0.01 x10^3/uL (0-0.1); BASOPHILS % (AUTO) 0 % (0-1); EOSINOPHILS # (AUTO) 0.15 x10^3/uL (0-0.4); EOSINOPHILS % (AUTO) 4 % (1-7); LYMPHOCYTES # (AUTO) 1.56 x10^3/uL (1-3.4); LYMPHOCYTES % (AUTO) 41 % (22-44); MD NO; MEAN CORPUSCULAR HEMOGLOBIN 28.4 pg (27.0-34.8); MEAN CORPUSCULAR HGB CONC 32.8 g/dL (32.4-35.8); MEAN CORPUSCULAR VOLUME 86.8 fL (80-100); MEAN PLATELET VOLUME 7.4 fL (7.4-10.4); MONOCYTES # (AUTO) 0.31 x10^3/uL (0.2-0.8); MONOCYTES % (AUTO) 8 % (2-9); NEUTROPHILS # (AUTO) 1.78 x10^3/uL (1.8-6.8); NEUTROPHILS % (AUTO) 47 % (42-75); PLATELET COUNT 192 x10^3/uL (130-400); RED BLOOD COUNT 3.69 x10^6/uL (3.82-5.3); RED CELL DISTRIBUTION WIDTH 14.1 % (9.6-15.2)
[2019-06-12] MEDS: METOPROLOL SUCCINATE 25 MG TAB.ER.24H PO SCH (05:40)
[2019-06-12 08:02] VITALS: BP 114/74
[2019-06-12] MEDS: DOCUSATE 100 MG CAPSULE PO SCH (08:52)
[2019-06-12] MEDS: TAMSULOSIN 0.4 MG CAP.ER.24H PO SCH (08:52)
[2019-06-12] MEDS: SODIUM CHLORIDE 0.9% 1,000 ML IV SCH (08:52)
[2019-06-12] MEDS: FLUOXETINE HCL 20 MG CAPSULE PO SCH (08:52)
[2019-06-12] MEDS: PROMETHAZINE 25 MG SUPP PR SCH (08:54)
[2019-06-12] MEDS: DIPHENHYDRAMINE 50 MG/ML, 1ML IVPush PRN ×2 (10:15→18:06)
[2019-06-12] MEDS: ENOXAPARIN 40 MG/0.4 ML SQ SCH (12:06)
[2019-06-12 14:46] VITALS: BP 92/63
[2019-06-12 14:47] VITALS: BP 77/53
[2019-06-12 14:48] VITALS: BP 82/55
[2019-06-12] MEDS: DAPTOMYCIN 250 MG in SODIUM CHLORIDE 0.9% 100 ML IV SCH (17:55)
[2019-06-12 19:58] VITALS: BP 90/59
[2019-06-12] MEDS: METHOCARBAMOL 500 MG TABLET PO PRN (20:31)
[2019-06-13 01:24] VITALS: BP 90/60
[2019-06-13] MEDS: DIPHENHYDRAMINE 50 MG/ML, 1ML IVPush PRN ×4 (01:32→23:12)
[2019-06-13] MEDS: OXYcodone/APAP 10/325MG TABLET PO PRN ×4 (01:33→20:25)
[2019-06-13] MEDS: VANCOMYCIN 50 MG/ML ORAL SUSP PO SCH ×4 (03:42→20:25)
[2019-06-13] MEDS: MEROPENEM 1,000 MG in SODIUM CHLORIDE 0.9% 100 ML IV SCH ×3 (03:43→20:25)
[2019-06-13] MEDS: SODIUM CHLORIDE 0.9% 1,000 ML IV SCH (03:43)
[2019-06-13] MEDS: PROMETHAZINE 25 MG SUPP PR PRN (03:50)
[2019-06-13 04:12] LABS: BASOPHILS # (AUTO) 0.01 x10^3/uL (0-0.1); BASOPHILS % (AUTO) 0 % (0-1); EOSINOPHILS # (AUTO) 0.15 x10^3/uL (0-0.4); EOSINOPHILS % (AUTO) 4 % (1-7); LYMPHOCYTES # (AUTO) 1.94 x10^3/uL (1-3.4); LYMPHOCYTES % (AUTO) 45 % (22-44); MD NO; MEAN CORPUSCULAR HGB CONC 32.8 g/dL (32.4-35.8); MEAN CORPUSCULAR VOLUME 88.5 fL (80-100); MEAN PLATELET VOLUME 7.5 fL (7.4-10.4); MONOCYTES # (AUTO) 0.36 x10^3/uL (0.2-0.8); MONOCYTES % (AUTO) 8 % (2-9); NEUTROPHILS # (AUTO) 1.83 x10^3/uL (1.8-6.8); NEUTROPHILS % (AUTO) 43 % (42-75); PLATELET COUNT 178 x10^3/uL (130-400); RED BLOOD COUNT 3.57 x10^6/uL (3.82-5.3); RED CELL DISTRIBUTION WIDTH 13.8 % (9.6-15.2)
[2019-06-13 04:26] LABS: % IRON SATURATION 7 % (20-55); ANION GAP 6 mmol/L (5-15); CALCIUM 7.9 mg/dL (8.5-10.1); CHLORIDE 109 mmol/L (98-107); CREATININE 0.62 mg/dL (0.55-1.02); IRON LEVEL 24 mcg/dL (50-170); TOTAL IRON BINDING CAPACITY 350 mcg/dL (250-450)
[2019-06-13 06:04] VITALS: BP 90/60
[2019-06-13] MEDS: METOPROLOL SUCCINATE 25 MG TAB.ER.24H PO SCH (06:05)
[2019-06-13 07:34] VITALS: BP 100/65
[2019-06-13] MEDS: DOCUSATE 100 MG CAPSULE PO SCH (09:00)
[2019-06-13] MEDS: FLUOXETINE HCL 20 MG CAPSULE PO SCH (09:26)
[2019-06-13] MEDS: TAMSULOSIN 0.4 MG CAP.ER.24H PO SCH (09:26)
[2019-06-13] MEDS: ENOXAPARIN 40 MG/0.4 ML SQ SCH (12:48)
[2019-06-13 13:39] VITALS: BP 99/56
[2019-06-13] MEDS: DAPTOMYCIN 250 MG in SODIUM CHLORIDE 0.9% 100 ML IV SCH (17:45)
[2019-06-13 19:55] VITALS: BP 120/79
[2019-06-13] MEDS: METHOCARBAMOL 500 MG TABLET PO PRN (20:25)
[2019-06-13] MEDS: ACETAMINOPHEN 325 MG TABLET PO PRN (23:12)
[2019-06-14 01:27] VITALS: BP 92/62
[2019-06-14] MEDS: OXYcodone/APAP 10/325MG TABLET PO PRN ×5 (01:49→22:41)
[2019-06-14] MEDS: MEROPENEM 1,000 MG in SODIUM CHLORIDE 0.9% 100 ML IV SCH ×3 (03:27→20:55)
[2019-06-14] MEDS: METHOCARBAMOL 500 MG TABLET PO PRN ×2 (03:28→22:41)
[2019-06-14] MEDS: ACETAMINOPHEN 325 MG TABLET PO PRN (03:28)
[2019-06-14] MEDS: VANCOMYCIN 50 MG/ML ORAL SUSP PO SCH ×4 (03:28→22:41)
[2019-06-14 06:06] VITALS: BP 91/62
[2019-06-14] MEDS: METOPROLOL SUCCINATE 25 MG TAB.ER.24H PO SCH (06:08)
[2019-06-14] MEDS: DIPHENHYDRAMINE 50 MG/ML, 1ML IVPush PRN ×3 (06:08→18:35)
[2019-06-14 07:40] VITALS: BP 105/71
[2019-06-14] MEDS: TAMSULOSIN 0.4 MG CAP.ER.24H PO SCH (08:24)
[2019-06-14] MEDS: FLUOXETINE HCL 20 MG CAPSULE PO SCH (08:24)
[2019-06-14] MEDS: DOCUSATE 100 MG CAPSULE PO SCH (08:26)
[2019-06-14 13:02] VITALS: BP 120/77
[2019-06-14] MEDS: ENOXAPARIN 40 MG/0.4 ML SQ SCH (13:23)
[2019-06-14] MEDS: DAPTOMYCIN 250 MG in SODIUM CHLORIDE 0.9% 100 ML IV SCH (18:33)
[2019-06-14 18:59] VITALS: BP 98/66
[2019-06-14] MEDS: PROMETHAZINE 25 MG SUPP PR PRN (21:03)
[2019-06-14] MEDS: LORazepam 1MG TABLET PO PRN (21:10)
[2019-06-15] MEDS: DIPHENHYDRAMINE 50 MG/ML, 1ML IVPush PRN ×4 (00:35→18:15)
[2019-06-15 01:12] VITALS: BP 113/78
[2019-06-15] MEDS: OXYcodone/APAP 10/325MG TABLET PO PRN ×4 (05:42→20:30)
[2019-06-15] MEDS: MEROPENEM 1,000 MG in SODIUM CHLORIDE 0.9% 100 ML IV SCH ×3 (05:42→20:30)
[2019-06-15] MEDS: METOPROLOL SUCCINATE 25 MG TAB.ER.24H PO SCH (05:42)
[2019-06-15] MEDS: VANCOMYCIN 50 MG/ML ORAL SUSP PO SCH ×2 (05:43→10:19)
[2019-06-15 07:15] VITALS: BP 103/67
[2019-06-15] MEDS: DOCUSATE 100 MG CAPSULE PO SCH (08:01)
[2019-06-15] MEDS: TAMSULOSIN 0.4 MG CAP.ER.24H PO SCH (08:01)
[2019-06-15] MEDS: FLUOXETINE HCL 20 MG CAPSULE PO SCH (08:01)
[2019-06-15 11:11] LABS: CLOSTRIDIUM DIFFICILE ANTIGEN NEGATIVE; CLOSTRIDIUM DIFFICILE TOXIN NEGATIVE (Negative)
[2019-06-15] MEDS: ENOXAPARIN 40 MG/0.4 ML SQ SCH (12:22)
[2019-06-15 13:20] VITALS: BP 92/62
[2019-06-15] MEDS: DAPTOMYCIN 250 MG in SODIUM CHLORIDE 0.9% 100 ML IV SCH (18:15)
[2019-06-15 18:59] VITALS: BP 93/64
[2019-06-15] MEDS: METHOCARBAMOL 500 MG TABLET PO PRN (21:57)
[2019-06-16] MEDS: OXYcodone/APAP 10/325MG TABLET PO PRN ×4 (00:30→16:57)
[2019-06-16] MEDS: DIPHENHYDRAMINE 50 MG/ML, 1ML IVPush PRN ×4 (00:33→16:57)
[2019-06-16 01:44] VITALS: BP 93/60
[2019-06-16] MEDS: MEROPENEM 1,000 MG in SODIUM CHLORIDE 0.9% 100 ML IV SCH ×2 (04:53→12:59)
[2019-06-16] MEDS: METOPROLOL SUCCINATE 25 MG TAB.ER.24H PO SCH (06:00)
[2019-06-16 07:10] VITALS: BP 110/75
[2019-06-16] MEDS ORDERED: FERROUS SULFATE 325 MG TABLET PO SCH (08:00)
[2019-06-16] MEDS: FLUOXETINE HCL 20 MG CAPSULE PO SCH (08:08)
[2019-06-16] MEDS: TAMSULOSIN 0.4 MG CAP.ER.24H PO SCH (08:08)
[2019-06-16] MEDS: DOCUSATE 100 MG CAPSULE PO SCH (08:26)
[2019-06-16 08:41] LABS: AMPHETAMINE SCREEN, URINE Negative (Negative); BARBITURATE SCREEN, URINE Negative (Negative); BENZODIAZEPINE SCREEN, URINE Positive (Negative); CANNABINOID SCREEN, URINE Negative (Negative); COCAINE SCREEN, URINE Negative (Negative); METHADONE SCREEN, URINE Negative (Negative); OPIATE SCREEN, URINE Positive (Negative)
[2019-06-16] MEDS ORDERED: FERR-51 PO (12:27)
[2019-06-16] MEDS: ENOXAPARIN 40 MG/0.4 ML SQ SCH (12:30)
[2019-06-16 13:02] VITALS: BP 115/78
[2019-06-16] MEDS ORDERED: MIDAZOLAM 1 MG/ML, 5ML ONE (15:05)
[2019-06-16] MEDS ORDERED: FENTANYL PF 100 MCG/2ML ONE (15:05)
[2019-06-16] MEDS ORDERED: FLUMAZENIL 0.1 MG/1 ML, 5ML ONE (15:06)
[2019-06-16] MEDS ORDERED: NALOXONE 1 MG/ML, 2ML ONE (15:06)
[2019-06-16] MEDS ORDERED: LIDOCAINE 1%, 20ML ONE (15:14)
[2019-06-16] MEDS ORDERED: LIDOCAINE-MPF 1%, 5ML ONE (15:44)
[2019-06-16] MEDS: DAPTOMYCIN 250 MG in SODIUM CHLORIDE 0.9% 100 ML IV SCH (16:46)
[2019-06-16] MEDS: METHOCARBAMOL 500 MG TABLET PO PRN (16:58)
[2019-06-16] MEDS: LORazepam 1MG TABLET PO PRN (16:58)
[2019-06-26] MEDS ORDERED: AMPH20TA2 PO (21:26)
[2019-06-26] MEDS ORDERED: [UNRECOGNIZED DRUG - CODE] IVF (21:26)
[2019-06-26] MEDS ORDERED: FLUO40CA9 PO (21:26)
[2019-06-30] MEDS ORDERED: OXYC-432 PO (13:10)
[2019-07-02] MEDS ORDERED: METR500T PO (10:12)
[2019-07-02] MEDS ORDERED: CEFD300C37 PO (10:12)
== END 2019-06-16 18:12 | disposition home or self-care (01) | DRG 316 ==
LOC: ED 19:29 → EDIP 19:45 → 3NE 22:12 → 5SO 06-06 17:48 → 4WST 06-06 17:51
PROVIDERS: ADMIT Family Medicine; ATTEND Family Medicine
PROC: 0JPV3WZ Removal of Totally Implantable Vascular Access Device from Upper Extremity Subcutaneous Tissue and Fascia, Percutaneous Approach (ICD-10-PCS; principal; 2019-06-07)
PROC: 02HV33Z Insertion of Infusion Device into Superior Vena Cava, Percutaneous Approach (ICD-10-PCS; 2019-06-16)
PROC: B5181ZA Fluoroscopy of Superior Vena Cava using Low Osmolar Contrast, Guidance (ICD-10-PCS; 2019-06-16)
PROC: B548ZZA Ultrasonography of Superior Vena Cava, Guidance (ICD-10-PCS; 2019-06-16)
DX: T80.218A Other infection due to central venous catheter, initial encounter (principal); Y83.8 Other surgical procedures as the cause of abnormal reaction of the patient, or of later complication, without mention of misadventure at the time of the procedure; Y92.89 Other specified places as the place of occurrence of the external cause; D50.9 Iron deficiency anemia, unspecified; F31.9 Bipolar disorder, unspecified; F41.9 Anxiety disorder, unspecified; F19.10 Other psychoactive substance abuse, uncomplicated; I10 Essential (primary) hypertension; I45.81 Long QT syndrome; Z86.11 Personal history of tuberculosis; Z90.710 Acquired absence of both cervix and uterus; Z88.8 Allergy status to other drugs, medicaments and biological substances
CPT/HCPCS: 36415; 77001; 84145; 87400; 99285; J3370; J3490; 36561; 36590; 71045; 71046; 74177; 76604; 76937; 78264; 80048; 80053; 80307; 81003; 81025; 82784; 82787; 83540; 83550; 83605; 84443; 85025; 85651; 86140; 87040; 87070; 87324; 93005; 99156; 99157; G0378; J0878; J1170; J1644; J1650; J1885; J2185; J2250; J2543; J2997; J3010; Q9967; A9541; C1788; C9898; J1200; J1642; J2270; J2310; J7030; J7050

== ENCOUNTER 2019-06-26 19:33 | Emergency (ER) | payer BC, MEDICARE ==
[~2019-06-26] VITALS: Ht 162.6 cm; Wt 62.6 kg
[2019-06-27 00:33] VITALS: BP 119/83
== END 2019-06-27 00:40 | disposition home or self-care (01) ==
LOC: ED 20:29
DX: F25.0 Schizoaffective disorder, bipolar type (principal); F32.0 Major depressive disorder, single episode, mild; I11.9 Hypertensive heart disease without heart failure; Z90.710 Acquired absence of both cervix and uterus; Z90.49 Acquired absence of other specified parts of digestive tract; Z90.721 Acquired absence of ovaries, unilateral
CPT/HCPCS: 36415; 80053; 80307; 85025; 93005; 96374; 99284; J1200

== ENCOUNTER 2019-06-30 05:33 | Inpatient (IN) | payer BC, MEDICARE ==
[~2019-06-30] VITALS: Ht 162.6 cm; Wt 67.1 kg
[2019-07-02 08:02] VITALS: BP 121/80
== END 2019-07-02 12:35 | disposition home or self-care (01) | DRG 195 ==
LOC: ED 06:04 → EDIP 07:55 → 3NE 09:29 → DCLOUNGE 07-02 12:25
PROVIDERS: ADMIT Internal Medicine; ATTEND Internal Medicine
DX: J15.9 Unspecified bacterial pneumonia (principal); F25.9 Schizoaffective disorder, unspecified; F31.9 Bipolar disorder, unspecified; F41.9 Anxiety disorder, unspecified; I10 Essential (primary) hypertension; N80.9 Endometriosis, unspecified; Z86.11 Personal history of tuberculosis; Z90.710 Acquired absence of both cervix and uterus; Z88.8 Allergy status to other drugs, medicaments and biological substances
CPT/HCPCS: 36415; 71046; 80048; 80053; 81003; 82550; 83605; 83735; 84145; 85025; 85610; 85730; 87040; 93005; 96365; 96375; G0378; J0456; J0696; J1650; J1885; J2543; J1200; J7030; J7050

== ENCOUNTER 2019-10-07 05:43 | Emergency (ER) | payer BC, MEDICARE ==
[~2019-10-07] VITALS: Ht 162.6 cm; Wt 68.1 kg
[~2019-10-07 05:43] MED LIST changes: +CEFD300C37 PO; +FERR-51 PO; +FLUO40CA9 PO; +METR500T PO; +OXYC-432 PO; +[UNRECOGNIZED DRUG - CODE] IVF
--- NOTE | 2019-10-07 06:14 | NUR ---
PT TO ED C/O FEVER THIS AM (101) TOOK ADVIL AT 0130. STATES VOMITED AT 0330. PT STATES N/V/D X 4 DAYS. RLQ PAIN. DENIES ANY TROUBLE URINATING. AMBULATORY TO RESTROOM FOR URINE SAMPLE. LAST BM TODAY. PT STATES HER HR WAS 158 @2100 LAST NIGHT, TOOK 12.5MG LOPRESSOR (PRN). PT HAS PORT TO R CHEST, ESTB 2 DAYS AGO. TBS. WILL CTM.
--- NOTE | 2019-10-07 06:22 | NUR ---
AMBULATORY TO RESTROOM FOR SAMPLE.
[2019-10-07] MEDS ORDERED: HYDROmorphone 2 MG/ML, 1ML IVPush PRN (06:30)
[2019-10-07] MEDS ORDERED: PROMETHAZINE 25 MG/ML, 1ML IM ONE (06:30)
[2019-10-07] MEDS ORDERED: SODIUM CHLORIDE 0.9% 1,000ML IVBOLUS ONE (06:30)
[2019-10-07] MEDS ORDERED: SODIUM CHLORIDE 0.9% 100 ML IV SCH (06:30)
[2019-10-07] MEDS ORDERED: HYDROmorphone 1 MG/ML, 1ML VIAL ONE (06:42)
[2019-10-07] MEDS ORDERED: PROMETHAZINE 25 MG/ML, 1ML ONE (06:42)
[2019-10-07] MEDS ORDERED: DIPHENHYDRAMINE 50 MG/ML, 1ML ONE (06:42)
[2019-10-07 07:00] LABS: BASOPHILS # (AUTO) 0.03 x10^3/uL (0-0.1); BASOPHILS % (AUTO) 1 % (0-1); EOSINOPHILS # (AUTO) 0.07 x10^3/uL (0-0.4); EOSINOPHILS % (AUTO) 2 % (1-7); LYMPHOCYTES # (AUTO) 1.06 x10^3/uL (1-3.4); LYMPHOCYTES % (AUTO) 30 % (22-44); MD NO; MEAN CORPUSCULAR HEMOGLOBIN 26.7 pg (27.0-34.8); MEAN CORPUSCULAR HGB CONC 32.4 g/dL (32.4-35.8); MEAN CORPUSCULAR VOLUME 82.4 fL (80-100); MEAN PLATELET VOLUME 7.8 fL (7.4-10.4); MONOCYTES % (AUTO) 6 % (2-9); NEUTROPHILS # (AUTO) 2.24 x10^3/uL (1.8-6.8); NEUTROPHILS % (AUTO) 62 % (42-75); PLATELET COUNT 210 x10^3/uL (130-400); RED BLOOD COUNT 3.97 x10^6/uL (3.82-5.3); RED CELL DISTRIBUTION WIDTH 17.1 % (9.6-15.2)
[2019-10-07] MEDS ORDERED: DIPHENHYDRAMINE 50 MG/ML, 1ML IVPush PRN (07:00)
--- NOTE | 2019-10-07 07:03 | NUR ---
REPORT RECEIVED FROM OLIVA TEJEDA.
[2019-10-07 07:06] LABS: ALANINE AMINOTRANSFERASE 22 U/L (12-78); ALBUMIN 3.8 g/dL (3.4-5.0); ANION GAP 4 mmol/L (5-15); CALCIUM 8.2 mg/dL (8.5-10.1); CHLORIDE 112 mmol/L (98-107); CREATININE 0.72 mg/dL (0.55-1.02)
[2019-10-07 07:08] LABS: ALKALINE PHOSPHATASE 74 U/L (45-117); BILIRUBIN,TOTAL 0.2 mg/dL (0.2-1.0); TOTAL PROTEIN 7.1 g/dL (6.4-8.2)
--- NOTE | 2019-10-07 07:25 | NUR ---
WATER PROVIDED AT THIS TIME. PT'S AOX4. RESPS EVEN AND UNLABORED.
[2019-10-07] MEDS ORDERED: DICYCLOMINE 10 MG/ML, 2ML IM ONE (08:00)
[2019-10-07] MEDS ORDERED: DICYCLOMINE 10 MG/ML, 2ML ONE (08:02)
--- NOTE | 2019-10-07 08:07 | NUR ---
PT REFUSED BENTYL AT THIS TIME. EDMD NOTIFIED.
--- NOTE | 2019-10-07 08:08 | NUR ---
PT AMB TO BR WITH STEADY GAIT. PT'S AOX4. RESPS EVEN AND UNLABORED.
[2019-10-07 08:15] VITALS: BP 127/81
--- NOTE | 2019-10-07 09:04 | NUR ---
Patient given discharge instructions and they have confirmed that they understand the instructions. Patient ambulatory with steady gait.
[2019-10-08] MEDS ORDERED: OXYC10TA6 PO (13:31)
== END 2019-10-07 09:05 | disposition home or self-care (01) ==
LOC: ED 06:42
DX: R11.2 Nausea with vomiting, unspecified (principal); R19.7 Diarrhea, unspecified; E86.0 Dehydration; R10.84 Generalized abdominal pain; I10 Essential (primary) hypertension; Z90.710 Acquired absence of both cervix and uterus
CPT/HCPCS: 36415; 80053; 83690; 85025; 96361; 96372; 96374; 99283; J1200; J2550; J7030

== ENCOUNTER 2019-10-07 22:09 | Emergency (ER) | payer BC, MEDICARE ==
[~2019-10-07] VITALS: Ht 162.6 cm; Wt 68.6 kg
--- NOTE | 2019-10-07 22:31 | NUR ---
THIS IS A 39 YO FEMALE COMING IN FOR REFILL OF PRESCRIPTION, PATIENT STATES "I WAS SEEN HERE EARLIER TODAY FOR MY POTS BECAUSE I HAD A REALLY BAD EPISODE. I LEFT TO GO TO THE BATHROOM, CAME BACK AND ALL MY PILLS WERE GONE FROM MY PURSE. I WAS WONDERING IF YOU GUYS COULD REFILL MY PRESCRIPTION, AND GIVE ME SOMETHING FOR PIAN IN MY PORT WHILE I'M HERE". PATIENT STATES SHE FILED A POLICE REPORT AND ASKS "DO YOU GUYS HAVE A LOT OF THEFT HERE?". PATIENT IS A&OX4, BUT SLOW TO RESPOND AND TALK. PATIENT HAS A PORT TO HER RIGHT CHEST THAT WAS PLACED 5 YEARS AGO AT [facility] FOR POTS. RESPIRATIONS ARE EVEN AND UNLABORED, NO ACUTE DISTRESS, FAMILY IN ROOM, CALL LIGHT IN REACH, DENIES FURTHER NEEDS AT THIS TIME.
[2019-10-07] MEDS ORDERED: HYDROmorphone 1 MG/ML, 1ML VIAL ONE (22:59)
[2019-10-07] MEDS ORDERED: HYDROmorphone 1 MG/ML, 1ML INJ IV ONE (23:00)
--- NOTE | 2019-10-07 23:05 | NUR ---
PATIENT MEDICATED PER EMAR. MEDICATION GIVEN IM INSTEAD OF IV. VERIFIED WITH MD BEFORE ADMINISTRATION.
[2019-10-07 23:55] VITALS: BP 121/85
--- NOTE | 2019-10-07 23:55 | NUR ---
PRECEPTOR RN: PT SITTING UP IN [place] GUTIERREZ NOTED. PT REPORTS SIGNIFICANT IMPROVEMENT IN PAIN WITH PAIN MEDICATIONS. SPO2 >90% ON RA; RR WNL. CHART UP FOR RECHECK, AWAITING DISPO ORDERS
--- NOTE | 2019-10-08 00:24 | NUR ---
RN TO ROOM WITH DISCHARGE PAPERWORK, PATIENT NOT IN ROOM, NOT IN DISCHARGE WAITING AREA, OR LOBBY. PATIENT LEFT BEFORE GIVEN DISCHARGE PAPERWORK. PATIENT HAD STATED PREVIOUSLY TO LEAVING HER IS DRIVING HER HOME.
[2019-10-08] MEDS ORDERED: OXYC10TA6 PO (13:31)
== END 2019-10-08 00:27 | disposition home or self-care (01) ==
LOC: ED 22:37
DX: R10.9 Unspecified abdominal pain (principal); R11.10 Vomiting, unspecified; Z76.0 Encounter for issue of repeat prescription; I10 Essential (primary) hypertension; Z90.710 Acquired absence of both cervix and uterus
CPT/HCPCS: 96372; 99283; J1170

== ENCOUNTER 2019-10-08 13:10 | Emergency (ER) | payer BC, MEDICARE ==
[~2019-10-08] VITALS: Ht 162.6 cm; Wt 68.0 kg
[2019-10-08 13:13] VITALS: BP 130/83
[2019-10-08] MEDS ORDERED: OXYC10TA6 PO (13:31)
--- NOTE | 2019-10-08 13:39 | NUR ---
DR. GARCIA AT BEDSIDE.
[2019-10-08] MEDS ORDERED: DIPHENHYDRAMINE 50 MG/ML, 1ML IVPush ONE (14:00)
[2019-10-08] MEDS ORDERED: SODIUM CHLORIDE 0.9%, 500ML IVBOLUS ONE (14:00)
[2019-10-08] MEDS ORDERED: DIPHENHYDRAMINE 50 MG/ML, 1ML ONE (14:02)
[2019-10-08] MEDS ORDERED: OXYcodone IR 5MG TABLET ONE (14:28)
[2019-10-08] MEDS ORDERED: OXYcodone IR 5MG TABLET PO ONE (14:30)
--- NOTE | 2019-10-08 15:01 | NUR ---
Patient given discharge instructions and they have confirmed that they understand the instructions. Patient ambulatory with steady gait.
== END 2019-10-08 15:02 | disposition home or self-care (01) ==
LOC: ED 13:25
DX: M79.18 Myalgia, other site (principal); Z76.0 Encounter for issue of repeat prescription; I11.9 Hypertensive heart disease without heart failure; Z90.89 Acquired absence of other organs; Z90.710 Acquired absence of both cervix and uterus; Z90.721 Acquired absence of ovaries, unilateral
CPT/HCPCS: 96374; 99283; J1200

== ENCOUNTER 2019-12-31 17:14 | Emergency (ER) | payer BC, MEDICARE ==
[~2019-12-31] VITALS: Ht 162.6 cm; Wt 64.3 kg
[~2019-12-31 17:14] MED LIST changes: +OXYC10TA6 PO
--- NOTE | 2019-12-31 19:55 | NUR ---
Patient into room, reports feeling her "Port out of place." RN can visualize tunneled catheter above the clavicle which patient reports is a new finding. Patient reports tender to the touch. Patient is alert, oriented answers questions clearly, concisely and a good historian as she can recall most of the medications she is currently on, the conditions they are for, but has some difficulty recalling dosages. patient provided with warm blanket. Awaiting assessment and orders from provider.
[2019-12-31] MEDS ORDERED: HYDROcodone/APAP 5/325 TABLET PO ONE (21:30)
[2019-12-31] MEDS ORDERED: HYDROcodone/APAP 5/325 TABLET ONE (21:39)
[2019-12-31 21:55] VITALS: BP 122/75
== END 2019-12-31 22:00 | disposition home or self-care (01) ==
LOC: ED 18:00
DX: R07.89 Other chest pain (principal); I10 Essential (primary) hypertension; F17.200 Nicotine dependence, unspecified, uncomplicated; Z90.710 Acquired absence of both cervix and uterus
CPT/HCPCS: 71045; 99283